=== PATIENT | male | born 1955 | race American Indian/Alaskan Native ===

== ENCOUNTER 2017-08-28 14:15 | Inpatient (IN) | payer MEDICARE ==
--- NOTE | 2017-08-28 14:46 | Emergency Department Report ---
Stated Complaint: LEFT SIDE PAIN/SWOLLEN FEET Time Seen by Provider: 08/28/17 14:41 - HPI History of Present Illness: PT c/o side pain. PT states he has a hx BPH. PT states he has had BPH and he had biopsy x 3 (in 2014.) PT states he was sent to oncologist. PT states he went to follow up appointment that was at 2pm but he was not seen until 6. PT states he was also told that needs "radical surgery" PT states he felt like this dx and plan was wrong so he did not follow up. PT states he is now having back pain - ROS Review of Systems: + back pain - dysuria - hematuria + weight loss - Exam Physical Exam: thin male steady gait gcs 15 MSE screening note: Focused history and physical exam performed. Due to findings the following was ordered: labs ED Disposition for MSE Condition: Stable
[2017-08-28 15:23] LABS: Alanine Aminotransferase 9 units/L (7-56); Albumin 3.3 g/dL (3.9-5); Albumin/Globulin Ratio 0.8 %; Alkaline Phosphatase 89 units/L (35-129); Anion Gap 15 mmol/L; BUN/Creatinine Ratio 9; Blood Urea Nitrogen 6 mg/dL (9-20); Calcium 8.8 mg/dL (8.4-10.2); Carbon Dioxide 32 mmol/L (22-30); Chloride 92.4 mmol/L (98-107); Glucose 448 mg/dL (75-100); Lipase 47 units/L (13-60); Potassium 3.7 mmol/L (3.6-5.0); Sodium 136 mmol/L (137-145); Total Protein 7.5 g/dL (6.3-8.2)
[2017-08-28 15:38] LABS: Bilirubin,Urine NEG (Negative); Blood,Urine SM (Negative); Ketones,Urine NEG (Negative); Leukocyte Esterase,Urine LG (Negative); Mucus,Urine FEW /HPF; Nitrite,Urine NEG (Negative); Protein,Urine <15 mg/dL mg/dL (Negative); Urobilinogen,Urine < 2.0 mg/dL (<2.0)
[2017-08-28 15:40] LABS: WBC,Urine > 182.0 /HPF (0.0-6.0)
[2017-08-28 15:45] LABS: Basophils % (Auto) 0.5 % (0.0-1.8); Eosinophils % (Auto) 3.2 % (0.0-4.3); Hematocrit 39.5 % (35.5-45.6); Hemoglobin 13.2 gm/dl (11.8-15.2); Mean Corpuscular HGB Conc 33 % (32-34); Mean Corpuscular Hemoglobin 26 pg (28-32); Mean Corpuscular Volume 79 fl (84-94); Platelet Count 259 K/mm3 (140-440); Red Blood Count 4.99 M/mm3 (3.65-5.03); Red Cell Distribution Width 13.1 % (13.2-15.2); White Blood Count 6.1 K/mm3 (4.5-11.0)
[2017-08-28] MEDS ORDERED: ROCEPHIN/NS 1 GM/50 ML 1 GM/50 ML BAG IV ONE (23:41)
[2017-08-28] MEDS ORDERED: NACL 0.9% 1000 ML 1,000 ML IV ONE (23:42)
[2017-08-28] MEDS ORDERED: TORADOL IV ONE (23:53)
--- NOTE | 2017-08-29 00:12 | Emergency Department Report ---
ED Abdominal Pain HPI - General Chief Complaint: Abdominal Pain Stated Complaint: LEFT SIDE PAIN/SWOLLEN FEET Time Seen by Provider: 08/28/17 14:41 Source: patient Mode of arrival: Ambulatory Limitations: No Limitations - History of Present Illness Initial Comments: 62-year-old male with a past medical history of BPH, hepatitis C, diabetes, hypertension, prolapsed rectum, and previous cholecystectomy presents to the hospital with complaints of ongoing left flank pain. He has been present for 2 weeks and 3 days. Pain is a constant aching 8/10 pain that becomes a 10/10 pain is sharp with movement. Patient denies dysuria, hematuria, nausea, vomiting, or diarrhea. Patient also states he has no difficulty initiating urination and does not have to strain. Patient has chronic rectal prolapse and hemorrhoids for "years". In 2014 Dr Salgado performed a third of prostate biopsy that shows signs of cancer and radical prostatectomy was recommended. Patient states he was going to get another opinion but has never followed up he also stopped seeing his primary care doctor Yaron Em.. Severity scale (0 -10): 7 - Related Data Allergies Allergy/AdvReac Type Severity Reaction Status Date / Time No Known Allergies Allergy Verified 08/29/17 01:06 ED Review of Systems ROS: Stated complaint: LEFT SIDE PAIN/SWOLLEN FEET Other details as noted in HPI Comment: All other systems reviewed and negative Other: Constitutional: No fevers chills Eyes: No eye pain visual changes ENT: No ear pain or throat pain Neck: Denies pain Respiratory: Denies cough wheezing shortness of breath Cardiovascular: Denies chest pain, palpitations, syncope GI: Left-sided abdominal pain : As per HPI Musculoskeletal: Left flank pain Skin: Denies rash, lesions, erythema Neurologic: Denies headache, numbness, weakness Psychiatric: Denies suicidal ideation, hallucinations ED Past Medical Hx - Past Medical History Previous Medical History?: Yes Hx Hypertension: Yes Hx Diabetes: Yes Hx of Cancer: Yes (prostate) Additional medical history: BPH, biopsy of prostate, prolapse rectum, hepatitis C - Surgical History Past Surgical History?: Yes Hx Cholecystectomy: Yes Additional Surgical History: Rectal reconstruction - Social History Smoking Status: Never Smoker Substance Use Type: Non Opiate Pain, Prescribed ED Physical Exam - General Limitations: No Limitations - Other Other exam information: General: No limitations, patient is alert in no acute distress Head exam: Atraumatic, normocephalic Eyes exam: Normal appearance, pupils equal reactive to light, extraocular movements intact ENT: Moist mucous membrane, normal oropharynx Neck exam: Normal inspection, full range of motion, no meningismus nontender Respiratory exam: Clear to auscultation bilateral, no wheezes, rales, crackles Cardiovascular: Normal rate and rhythm, normal heart sounds Abdomen: Soft, nondistended, left lateral abdominal tenderness, with normal bowel sounds, no rebound, or guarding : Circumcised, no penile lesions or discharge, no epididymal or testicular tenderness. Rectal: Rectal prolapse and hemorrhoids noted with pink tissue. No signs of thrombosis. No active signs of bleeding Extremity: Full range of motion normal inspection no deformity Back: Normal Inspection, full range of motion, left flank tenderness,, no edema Neurologic: Alert, oriented x3, cranial nerves intact, no motor or sensory deficit Psychiatric: normal affect, normal mood Skin: Warm, dry, intact ED Course Vital Signs 08/28/17 08/28/17 14:39 23:49 Temperature 98.8 F Pulse Rate 104 H 84 Respiratory 18 18 Rate Blood Pressure 155/98 Blood Pressure 173/91 [Right] O2 Sat by Pulse 100 Oximetry - Reevaluation(s) Reevaluation #1: 08/29/17 00:12 Toradol, normal saline, Rocephin initiated. CT pending ED Medical Decision Making - Lab Data Result diagrams: 08/28/17 14:48 08/28/17 14:48 Lab Results 08/28/17 08/28/17 08/28/17 Range/Units 14:48 14:48 Unknown WBC 6.1 (4.5-11.0) K/mm3 RBC 4.99 (3.65-5.03) M/mm3 Hgb 13.2 (11.8-15.2) gm/dl Hct 39.5 (35.5-45.6) % MCV 79 L (84-94) fl MCH 26 L (28-32) pg MCHC 33 (32-34) % RDW 13.1 L (13.2-15.2) % Plt Count 259 (140-440) K/mm3 Lymph % (Auto) 13.8 (13.4-35.0) % [place] % (Auto) 7.5 H (0.0-7.3) % Eos % (Auto) 3.2 (0.0-4.3) % Baso % (Auto) 0.5 (0.0-1.8) % Lymph # 0.8 L (1.2-5.4) K/mm3 [place] # 0.5 (0.0-0.8) K/mm3 Eos # 0.2 (0.0-0.4) K/mm3 Baso # 0.0 (0.0-0.1) K/mm3 Seg Neutrophils % 75.0 H (40.0-70.0) % Seg Neutrophils # 4.6 (1.8-7.7) K/mm3 Sodium 136 L (137-145) mmol/L Potassium 3.7 (3.6-5.0) mmol/L Chloride 92.4 L (98-107) mmol/L Carbon Dioxide 32 H (22-30) mmol/L Anion Gap 15 mmol/L BUN 6 L (9-20) mg/dL Creatinine 0.7 L (0.8-1.5) mg/dL Estimated GFR > 60 ml/min BUN/Creatinine Ratio 9 % Glucose 448 H (75-100) mg/dL POC Glucose (70-105) Calcium 8.8 (8.4-10.2) mg/dL Total Bilirubin 0.30 (0.1-1.2) mg/dL AST 10 (5-40) units/L ALT 9 (7-56) units/L Alkaline Phosphatase 89 (35-129) units/L Total Protein 7.5 (6.3-8.2) g/dL Albumin 3.3 L (3.9-5) g/dL Albumin/Globulin Ratio 0.8 % Lipase 47 (13-60) units/L Urine Color Yellow (Yellow) Urine Turbidity Clear (Clear) Urine pH 6.0 (5.0-7.0) Ur Specific [place] 1.032 H (1.003-1.030) Urine Protein <15 mg/dl (Negative) mg/dL Urine Glucose (UA) >=500 (Negative) mg/dL Urine Ketones Neg (Negative) mg/dL Urine Blood Sm (Negative) Urine Nitrite Neg (Negative) Urine Bilirubin Neg (Negative) Urine Urobilinogen < 2.0 (<2.0) mg/dL Ur Leukocyte Esterase Lg (Negative) Urine WBC (Auto) > 182.0 H (0.0-6.0) /HPF Urine RBC (Auto) 6.0 (0.0-6.0) /HPF U Epithel Cells (Auto) < 1.0 (0-13.0) /HPF Urine WBC Clumps 1+ /HPF Urine Mucus Few /HPF 08/29/17 Range/Units 00:01 WBC (4.5-11.0) K/mm3 RBC (3.65-5.03) M/mm3 Hgb (11.8-15.2) gm/dl Hct (35.5-45.6) % MCV (84-94) fl MCH (28-32) pg MCHC (32-34) % RDW (13.2-15.2) % Plt Count (140-440) K/mm3 Lymph % (Auto) (13.4-35.0) % [place] % (Auto) (0.0-7.3) % Eos % (Auto) (0.0-4.3) % Baso % (Auto) (0.0-1.8) % Lymph # (1.2-5.4) K/mm3 [place] # (0.0-0.8) K/mm3 Eos # (0.0-0.4) K/mm3 Baso # (0.0-0.1) K/mm3 Seg Neutrophils % (40.0-70.0) % Seg Neutrophils # (1.8-7.7) K/mm3 Sodium (137-145) mmol/L Potassium (3.6-5.0) mmol/L Chloride (98-107) mmol/L Carbon Dioxide (22-30) mmol/L Anion Gap mmol/L BUN (9-20) mg/dL Creatinine (0.8-1.5) mg/dL Estimated GFR ml/min BUN/Creatinine Ratio % Glucose (75-100) mg/dL POC Glucose 441 H (70-105) Calcium (8.4-10.2) mg/dL Total Bilirubin (0.1-1.2) mg/dL AST (5-40) units/L ALT (7-56) units/L Alkaline Phosphatase (35-129) units/L Total Protein (6.3-8.2) g/dL Albumin (3.9-5) g/dL Albumin/Globulin Ratio % Lipase (13-60) units/L Urine Color (Yellow) Urine Turbidity (Clear) Urine pH (5.0-7.0) Ur Specific [place] (1.003-1.030) Urine Protein (Negative) mg/dL Urine Glucose (UA) (Negative) mg/dL Urine Ketones (Negative) mg/dL Urine Blood (Negative) Urine Nitrite (Negative) Urine Bilirubin (Negative) Urine Urobilinogen (<2.0) mg/dL Ur Leukocyte Esterase (Negative) Urine WBC (Auto) (0.0-6.0) /HPF Urine RBC (Auto) (0.0-6.0) /HPF U Epithel Cells (Auto) (0-13.0) /HPF Urine WBC Clumps /HPF Urine Mucus /HPF - Radiology Data Radiology results: report reviewed CT abdomen and pelvis IV contrast: Cystic mass at the apex of left kidney measures 6.5 cm in diameter. Could be simple cysts, and necrotic neoplasm, or abscess. Focal irregularity of the medial border of the left kidney suggesting focal pyelonephritis Complex cystic mass in the psoas muscle measuring 2.3 x 4.8 x 9 cm suggestive psoas abscess versus necrotic tumor. There is left perinephric induration Large amount of stool in the colon. Enlarged left periaortic and retroperitoneal lymph nodes. Prostate gland is enlarged and heterogeneous. Infiltrates at the left lung base is small the pleural effusion - Medical Decision Making Patient initially given Rocephin in the ED based on initial UA. Given CT findings zosyn ordered as well. Patient will be admitted to the hospital for further treatment - Differential Diagnosis UTI, renal colic, prostate cancer, diverticulitis, muscle strain Critical Care Time: No Critical care attestation.: If time is entered above; I have spent that time in minutes in the direct care of this critically ill patient, excluding procedure time. ED Disposition Clinical Impression: Pyelonephritis, Psoas abscess, left, Renal cyst, left, Diabetes, HTN ( hypertension), Rectal mucosa prolapse, Pulmonary infiltrate Disposition: OP ADMIT IP TO THIS HOSP Is pt being admited?: Yes Condition: Stable Time of Disposition: 04:05 (Dr Forte/hospitalist)
[2017-08-29] MEDS ORDERED: NACL ONE (00:59)
--- NOTE | 2017-08-29 03:13 | Cat Scan Report ---
FINAL REPORT PROCEDURE: CT ABDOMEN PELVIS W CON TECHNIQUE: Computerized axial tomography of the abdomen and pelvis was performed after the IV injection of iodinated nonionic contrast. HISTORY: left flank pain, uti, ? hx of prostate cancer COMPARISON: No prior studies are available for comparison. FINDINGS: Visualized lower thorax: There are infiltrates at the left lung base. There is a small left pleural effusion. Liver: Normal size and attenuation. Spleen: Normal size and attenuation. Gallbladder and biliary system: Gallbladder is not identified and may have been removed. The bile ducts are normal in caliber.. Pancreas: Normal. Adrenals: Normal. Kidneys: The right kidney is normal in size and configuration. There is a 1 centimeter stone. There is a cystic mass at the apex of the left kidney measuring up to 6.5 centimeters in diameter. This could be a simple cyst but necrotic neoplasm or abscess not excluded. There is focal irregularity of the medial border of the left kidney suggesting focal pyelonephritis. There is a complex cystic mass in the left psoas muscle measuring 2.3 x 4.8 by 9 centimeters suggesting psoas abscess versus necrotic tumor. There is left perinephric induration.. GI tract: There is a large amount of stool in the colon. There is no bowel obstruction, colitis or enteritis. The appendix is not discretely identified.. Lymph nodes and mesentery: There is mesenteric induration. There are borderline prominent mesenteric lymph nodes. There are enlarged left periaortic retroperitoneal lymph nodes.. Vasculature: Normal. Bladder: Normal. Reproductive organs: Prostate gland is enlarged and heterogeneous.. Peritoneum: There is minimal ascites. There is no free air.. Musculoskeletal structures: No significant abnormality. Other: None. IMPRESSION: There is a cystic mass at the apex of the left kidney measuring up to 6.5 centimeters in diameter. This could be a simple cyst but necrotic neoplasm or abscess not excluded. There is focal irregularity of the medial border of the left kidney suggesting focal pyelonephritis. There is a complex cystic mass in the left psoas muscle measuring 2.3 x 4.8 x 9 centimeters suggesting psoas abscess versus necrotic tumor. There is left perinephric induration.. There is a large amount of stool in the colon. There is no bowel obstruction, colitis or enteritis. The appendix is not discretely identified.. There are enlarged left periaortic retroperitoneal lymph nodes.. Prostate gland is enlarged and heterogeneous.. There are infiltrates at the left lung base. There is a small left pleural effusion. There is minimal ascites. There is no free air..
[2017-08-29] MEDS ORDERED: ZOSYN/NS 4.5GM/100ML 4.5 GM/100 ML VIAL IV ONE (04:10)
[2017-08-29] MEDS ORDERED: ZOFRAN IV PRN (04:42)
[2017-08-29] MEDS ORDERED: TYLENOL PO PRN (04:42)
[2017-08-29] MEDS ORDERED: MILK OF MAGNESIA PO PRN (04:42)
[2017-08-29] MEDS ORDERED: DULCOLAX PR PRN (04:42)
--- NOTE | 2017-08-29 05:14 | History and Physical Report ---
History of Present Illness Date of examination: 08/29/17 History of present illness: 62-year-old man with a history of hypertension, diabetes, BPH, hepatitis C complaining of left flank pain that started 2 1/2 weeks ago. Patient is unable to describe the pain, intensity7/10, no radiation. Admits to chills, dysuria, weight loss of 10 pounds to one half weeks and swelling in his feet. He had 6 episodes of diarrhea yesterday which is now resolved Review Of Systems: Constitutional: no weight loss Ears, eyes, nose, mouth and throat: no nasal congestion, no nasal discharge, no sinus pressure, blurry vision, diplopia Neck: No neck pain or rigidity. Cardiovascular: chest pain, orthopnea, palpitations Respiratory: No shortness of breath, cough Gastrointestinal: abdominal pain, hematochezia Genitourinary : no dysuria, frequency , hematuria Musculoskeletal: no muscle ache Integumentary: no rash, no pruritis Neurological: no parathesias, focal weakness Endocrine: no cold or heat intolerance, no polyuria or polydipsia Hematologic/Lymphatic: no easy bruising, no easy bleeding, no gland swelling Allergic/Immunologic: no urticaria, no angioedema. PAST MEDICAL HISTORY:hypertension, CHF, hyperlipidemia, coronary artery disease PAST SURGICAL HISTORY: Rectal prolapse, cholecystectomy FAMILY HISTORY: Diabetes SOCIAL HISTORY: Denies alcohol, drug, tobacco Medications and Allergies Allergies Allergy/AdvReac Type Severity Reaction Status Date / Time No Known Allergies Allergy Verified 08/29/17 01:06 Home Medications Medication Instructions Recorded Confirmed Last Taken Type No Known Home Medications [No 08/29/17 08/29/17 Unknown History Reported Home Medications] Active Meds: Active Medications Acetaminophen (Tylenol) 650 mg PO Q4H PRN PRN Reason: Pain MILD(1-3)/Fever >100.5/OLSEN Bisacodyl (Dulcolax) 10 mg [place] QDAY PRN PRN Reason: Constipation unrelieved by MOM Enoxaparin Sodium (Lovenox) 30 mg SUB-Q QDAY ASHLEIGH Piperacillin Sod/Tazobactam Sod (Zosyn/Ns 4.5gm/100ml) 4.5 gm in 100 mls @ 200 mls/hr IV Q8HR ASHLEIGH PRN Reason: Protocol Sodium Chloride (Nacl 0.45% 1000 Ml) 1,000 mls @ 75 mls/hr IV DIRECT ASHLEIGH Magnesium Hydroxide (Milk Of Magnesia) 30 ml PO Q4H PRN PRN Reason: Constipation Morphine Sulfate (Morphine) 2 mg IV Q4H PRN PRN Reason: Pain, Moderate (4-6) Ondansetron HCl (Zofran) 4 mg IV Q8H PRN PRN Reason: N/V unrelieved by Reglan Exam - Physical Exam Narrative exam: Gen. appearance: Patient lying in bed in no acute distress HEENT: Normocephalic/atraumatic, pupils equal round reactive to light, extra alkaline movement intact, no scleral icterus, no JVD or thyromegaly or nodule, neck is supple, mucous membrane moist, no erythema or exudate Heart: S1-S2, regular rate and rhythm Lungs: Clear to auscultation bilateral breathing comfortable Abdomen: Positive bowel sounds, nontender, nondistended, no organomegaly Extremities: No edema, cyanosis, clubbing Neuro:: Oriented 3 , cranial nerves II-12 intact, speech, motor intact Skin: No rash, nodules, warm dry - Constitutional Vitals: Temp Pulse Resp BP Pulse Ox 98.8 F 84 18 173/91 100 08/28/17 14:39 08/28/17 23:49 08/28/17 23:49 08/28/17 23:49 08/28/17 14:39 Results - Labs CBC & Chem 7: 08/30/17 04:11 08/30/17 04:11 Labs: Abnormal lab results 08/28/17 08/28/17 08/28/17 Range/Units 14:48 14:48 Unknown MCV 79 L (84-94) fl MCH 26 L (28-32) pg RDW 13.1 L (13.2-15.2) % [place] % (Auto) 7.5 H (0.0-7.3) % Lymph # 0.8 L (1.2-5.4) K/mm3 Seg Neutrophils % 75.0 H (40.0-70.0) % Sodium 136 L (137-145) mmol/L Chloride 92.4 L (98-107) mmol/L Carbon Dioxide 32 H (22-30) mmol/L BUN 6 L (9-20) mg/dL Creatinine 0.7 L (0.8-1.5) mg/dL Glucose 448 H (75-100) mg/dL POC Glucose (70-105) Albumin 3.3 L (3.9-5) g/dL Ur Specific [place] 1.032 H (1.003-1.030) Urine WBC (Auto) > 182.0 H (0.0-6.0) /HPF 08/29/17 Range/Units 00:01 MCV (84-94) fl MCH (28-32) pg RDW (13.2-15.2) % [place] % (Auto) (0.0-7.3) % Lymph # (1.2-5.4) K/mm3 Seg Neutrophils % (40.0-70.0) % Sodium (137-145) mmol/L Chloride (98-107) mmol/L Carbon Dioxide (22-30) mmol/L BUN (9-20) mg/dL Creatinine (0.8-1.5) mg/dL Glucose (75-100) mg/dL POC Glucose 441 H (70-105) Albumin (3.9-5) g/dL Ur Specific [place] (1.003-1.030) Urine WBC (Auto) (0.0-6.0) /HPF - Imaging and Cardiology CT scan - abdomen: report reviewed CT scan - pelvis: report reviewed Assessment and Plan Assessment possible renal mass Acute pyelonephritis Psoas abscess versus necrotic mass Pneumonia, community-acquired Hypertension Diabetes type 2 BPH Hepatitis c Plan Admit medicine Start IV Zosyn, follow cultures Consults surgery, obtain ultrasound of the kidneys Check fingersticks patient is on sliding scale Continue present medication, due to
--- NOTE | 2017-08-29 08:26 | Ultrasound Report ---
ULTRASOUND RENAL BILATERAL HISTORY: Renal mass. TECHNIQUE: transabdominal ultrasound with color Doppler interrogation. FINDINGS: Compared to the CT abdomen and pelvis with contrast performed earlier the same day. The left kidney measures 13.9 x 5.7 x 6.1 cm. There is a hypoechoic, avascular, debris laden fluid collection in the superior left kidney measuring up to 6.6 x 6.7 cm. Given the findings on CT and ultrasound, this has the appearance of a renal abscess. Renal mass is thought less likely. There is also a similar appearing fluid collection in the left psoas muscle which probably represents a psoas abscess. The right kidney measures 10.6 x 5.8 x 7.0 cm. There are 2 cysts in the mid right kidney measuring 1.3 cm and 1.2 cm. Both kidneys are slightly echogenic consistent with nonspecific renal parenchymal disease. No shadowing calculus or hydronephrosis. The bladder is within normal limits. There is mild to moderate prostatic enlargement. IMPRESSION: Probable left renal abscess and left psoas muscle abscess. Echogenic kidneys consistent with nonspecific renal parenchymal disease. Enlarged prostate gland.
[2017-08-29] MEDS: NACL 0.45% 1000 ML 1,000 ML IV SCH (09:45)
[2017-08-29] MEDS: LOVENOX SUB-Q SCH (09:46)
[2017-08-29] MEDS ORDERED: LOVENOX SUB-Q SCH (10:00)
[2017-08-29] MEDS: ZOSYN/NS 4.5GM/100ML 4.5 GM/100 ML VIAL IV SCH ×2 (11:47→21:55)
--- NOTE | 2017-08-29 13:55 | Event Note ---
Date: 08/29/17 Patient seen and examined, in no acute distress except for left flank pain. He reports diagnosis of Prostrate CA few years ago but opted for alternative naturapathic therapy. I have encouraged that he sees a primary care practitioners, as he states he fired his previous doctor. Also has not follow with urology. He also notes mild rectal prolapse which has been chronic with no bleeding. [facility]
[2017-08-29] MEDS ORDERED: ZOSYN/NS 4.5GM/100ML 4.5 GM/100 ML VIAL IV SCH (14:00)
[2017-08-30] MEDS: NACL 0.45% 1000 ML 1,000 ML IV SCH ×2 (01:33→12:38)
[2017-08-30 04:39] LABS: Basophils % (Auto) 1.3 % (0.0-1.8); Eosinophils % (Auto) 7.1 % (0.0-4.3); Hematocrit 38.8 % (35.5-45.6); Hemoglobin 12.6 gm/dl (11.8-15.2); Mean Corpuscular HGB Conc 32 % (32-34); Mean Corpuscular Volume 79 fl (84-94); Platelet Count 258 K/mm3 (140-440); Red Blood Count 4.89 M/mm3 (3.65-5.03); Red Cell Distribution Width 13.1 % (13.2-15.2); White Blood Count 5.2 K/mm3 (4.5-11.0)
[2017-08-30 04:45] LABS: Mean Corpuscular Hemoglobin 26 pg (28-32)
[2017-08-30 04:55] LABS: Anion Gap 14 mmol/L; BUN/Creatinine Ratio 13; Blood Urea Nitrogen 9 mg/dL (9-20); Calcium 8.2 mg/dL (8.4-10.2); Carbon Dioxide 30 mmol/L (22-30); Chloride 100.6 mmol/L (98-107); Glucose 308 mg/dL (75-100); Potassium 3.4 mmol/L (3.6-5.0); Sodium 141 mmol/L (137-145)
[2017-08-30] MEDS: ZOSYN/NS 4.5GM/100ML 4.5 GM/100 ML VIAL IV SCH ×3 (06:30→21:00)
[2017-08-30] MEDS ORDERED: D50W (25GM) Syringe IV PRN (07:32)
[2017-08-30] MEDS ORDERED: K-DUR PO NR (08:00)
[2017-08-30] MEDS: MORPHINE IV PRN ×2 (09:20→15:35)
[2017-08-30] MEDS: LOVENOX SUB-Q SCH (09:42)
--- NOTE | 2017-08-30 11:00 | Event Note ---
Date: 08/30/17 Was asked to evaluate a patient for possible LUQ/renal collection drain. This patient presented with n/v and LUQ pain. No fevers/chills/leukocytosis. Has history of prostate cancer. Cross sectional imaging demonstrates what is most likely a renal abscess, less likely a necrotic tumor. I will aspirate the collection, and if contents appear purulent, I will place a drainage catheter. If not, then I will stop at aspiration, as drainage is not indicated for a necrotic tumor.
[2017-08-30] MEDS: NOVOLOG SUB-Q SCH ×3 (11:05→17:16)
--- NOTE | 2017-08-30 12:13 | Consultation ---
History of Present Illness - Reason for Consult Consult date: 08/30/17 - History of Present Illness 62-year-old male with a past medical history of BPH, hepatitis C, diabetes, hypertension, prolapsed rectum, and previous cholecystectomy presents to the hospital with complaints of ongoing left flank pain. He has been present for 2 weeks and 3 days. Pain is a constant aching 8/10 pain that becomes a 10/10 pain is sharp with movement. Patient denies dysuria, hematuria, nausea, vomiting, or diarrhea. Patient also states he has no difficulty initiating urination and does not have to strain. Patient has chronic rectal prolapse and hemorrhoids for "years". In 2014 Dr Salgado performed a third of prostate biopsy that shows signs of cancer and radical prostatectomy was recommended. Patient states he was going to get another opinion but has never followed up he also stopped seeing his primary care doctor Yaron Em.. CTAP--left renal mass---6cm, ? abscess abd soft A/P left renal mass---6cm, ? abscess need CTAP bx vs drainage - - I discussed with IR--Dr. Turner Medications and Allergies Allergies Allergy/AdvReac Type Severity Reaction Status Date / Time No Known Allergies Allergy Verified 08/29/17 01:06 Home Medications Medication Instructions Recorded Confirmed Last Taken Type No Known Home Medications [No 08/29/17 08/29/17 Unknown History Reported Home Medications] Active Meds: Active Medications Acetaminophen (Tylenol) 650 mg PO Q4H PRN PRN Reason: Pain MILD(1-3)/Fever >100.5/OLSEN Bisacodyl (Dulcolax) 10 mg [place] QDAY PRN PRN Reason: Constipation unrelieved by MOM Dextrose (D50w (25gm) Syringe) 50 ml IV PRN PRN PRN Reason: Hypoglycemia Enoxaparin Sodium (Lovenox) 40 mg SUB-Q QDAY@1000 ASHLEIGH Last Admin: 08/30/17 09:42 Dose: 40 mg Sodium Chloride (Nacl 0.45% 1000 Ml) 1,000 mls @ 75 mls/hr IV DIRECT ASHLEIGH Last Admin: 08/30/17 01:33 Dose: 75 mls/hr Piperacillin Sod/Tazobactam Sod (Zosyn/Ns 4.5gm/100ml) 4.5 gm in 100 mls @ 200 mls/hr IV Q8HR ASHLEIGH PRN Reason: Protocol Last Admin: 08/30/17 06:30 Dose: 200 mls/hr Insulin Aspart (Novolog) 0 units SUB-Q Q6HR ASHLEIGH PRN Reason: Protocol Last Admin: 08/30/17 11:05 Dose: Not Given Magnesium Hydroxide (Milk Of Magnesia) 30 ml PO Q4H PRN PRN Reason: Constipation Morphine Sulfate (Morphine) 2 mg IV Q4H PRN PRN Reason: Pain, Moderate (4-6) Last Admin: 08/30/17 09:20 Dose: 2 mg Ondansetron HCl (Zofran) 4 mg IV Q8H PRN PRN Reason: N/V unrelieved by Reglan Exam - Constitutional Vitals: Temp Pulse Resp BP Pulse Ox 98.4 F 57 L 16 142/80 97 08/30/17 08:14 08/30/17 08:14 08/30/17 08:14 08/30/17 08:14 08/30/17 10:00 Results - Labs CBC & Chem 7: 08/30/17 04:11 08/30/17 04:11 Labs: Abnormal lab results 08/29/17 08/29/17 08/29/17 Range/Units 15:57 16:52 21:02 MCV (84-94) fl MCH (28-32) pg RDW (13.2-15.2) % [place] % (Auto) (0.0-7.3) % Eos % (Auto) (0.0-4.3) % Lymph # (1.2-5.4) K/mm3 Potassium (3.6-5.0) mmol/L Creatinine (0.8-1.5) mg/dL Glucose (75-100) mg/dL POC Glucose 177 H 354 H (70-105) Hemoglobin A1c 14.0 H (4-6) % Calcium (8.4-10.2) mg/dL 08/30/17 08/30/17 08/30/17 Range/Units 04:11 04:11 11:35 MCV 79 L (84-94) fl MCH 26 L (28-32) pg RDW 13.1 L (13.2-15.2) % [place] % (Auto) 8.5 H (0.0-7.3) % Eos % (Auto) 7.1 H (0.0-4.3) % Lymph # 1.1 L (1.2-5.4) K/mm3 Potassium 3.4 L (3.6-5.0) mmol/L Creatinine 0.7 L (0.8-1.5) mg/dL Glucose 308 H (75-100) mg/dL POC Glucose 262 H (70-105) Hemoglobin A1c (4-6) % Calcium 8.2 L (8.4-10.2) mg/dL
[2017-08-30] MEDS ORDERED: XYLOCAINE 1%/ EPI 1:100,000 INFILTRATI ONE (13:55)
[2017-08-30] MEDS ORDERED: NACL 0.9% 500 ML IR ONE (13:55)
[2017-08-30] MEDS ORDERED: ANCEF/STERILE WATER 2 GM/20 ML 2 GM/20 ML SYRINGE IV ONE (13:56)
--- NOTE | 2017-08-30 14:50 | Progress Note ---
Assessment and Plan Assessment and plan: patient is a 62-year-old male with a past medical history of BPH, hepatitis C, diabetes, hypertension, prolapsed rectum, and previous cholecystectomy presents to the hospital with complaints of ongoing left flank pain. The patient he describes as 10/10 in intensity stuffed him on his tracts. This exacerbated by movement and by touch. He denies any radiation, he reports alleviated by rest. He reports that he was diagnosed with biopsy in 2015 with 3 different biopsies and was referred to have both radical surgery" to which he declined. Says that he has not followed his primary care physician he continues to follow "super food diet". He also he did not fill his primary care physician Woo and off as he was found appointment that was planned for 2:00 and was last seen on till 6 and even I doubt was only seen by a nurse who told him his Dr. one seemed to go reconsider having surgery. Possible renal mass, Acute pyelonephritis Psoas abscess versus necrotic mass Pneumonia, community-acquired Hypertension Diabetes type 2-Uncontrolled A1C 14 BPH Hepatitis c Plan * Continue IV Abx with zosyn, supportive care, Agree with IR intervention. Discussed and Consulted Urology earlier today * Discussed extensively with the patient about Diabetes, He demostrates understanding, but appears to have limited resources, will ensure reasonably affordable meds on discharge. * Encouraged outpatient PCP eval, including age appropriate screening on discharge * Images studies reveal a 6 cm renal mass which could also be possible abscess. Again as noted above for drainage all biopsy today. * DVT and GI prophylaxis * Plan of care discussed with the patient in detail History Interval history: Patient seen and examined today in no acute distress at the discussed the findings and laboratory with the patient included an elevated hemoglobin A1c. The patient believes something is wrong with the number since he believes that he has adequately managed his diabetes by sticking with naturopathic treatments including proper eating "super foods" Hospitalist Physical - Physical exam Narrative exam: VITAL SIGNS: Reviewed. GENERAL: The patient appeared well nourished and normally developed. Vital signs as documented. HEAD: No signs of head trauma. EYES: Pupils are equal. Extraocular motions intact. EARS: Hearing grossly intact. MOUTH: Oropharynx is normal. NECK: No adenopathy, no JVD. CHEST: Chest with clear breath sounds bilaterally. No wheezes, rales, or rhonchi. CARDIAC: Regular rate and rhythm. S1 and S2, without murmurs, gallops, or rubs. VASCULAR: No Edema. Peripheral pulses normal and equal in all extremities. ABDOMEN: Soft, without detectable tenderness. No sign of distention. No rebound or guarding, and no masses palpated. Bowel Sounds normal. MUSCULOSKELETAL: Good range of motion of all major joints. Extremities without clubbing, cyanosis or edema. NEUROLOGIC EXAM: Alert and oriented x 3. No focal sensory or strength deficits. Speech normal. Follows commands. PSYCHIATRIC: Mood normal. SKIN: No rash or lesions. - Constitutional Vitals: Temp Pulse Resp BP Pulse Ox 98.4 F 57 L 18 142/80 97 08/30/17 08:14 08/30/17 08:14 08/30/17 12:41 08/30/17 08:14 08/30/17 10:00 Results - Labs CBC & Chem 7: 08/30/17 04:11 08/30/17 04:11 Labs: Laboratory Last Values WBC 5.2 K/mm3 (4.5-11.0) 08/30/17 04:11 RBC 4.89 M/mm3 (3.65-5.03) 08/30/17 04:11 Hgb 12.6 gm/dl (11.8-15.2) 08/30/17 04:11 Hct 38.8 % (35.5-45.6) 08/30/17 04:11 MCV 79 fl (84-94) L 08/30/17 04:11 MCH 26 pg (28-32) L 08/30/17 04:11 MCHC 32 % (32-34) 08/30/17 04:11 RDW 13.1 % (13.2-15.2) L 08/30/17 04:11 Plt Count 258 K/mm3 (140-440) 08/30/17 04:11 Lymph % (Auto) 20.8 % (13.4-35.0) 08/30/17 04:11 [place] % (Auto) 8.5 % (0.0-7.3) H 08/30/17 04:11 Eos % (Auto) 7.1 % (0.0-4.3) H 08/30/17 04:11 Baso % (Auto) 1.3 % (0.0-1.8) 08/30/17 04:11 Lymph # 1.1 K/mm3 (1.2-5.4) L 08/30/17 04:11 [place] # 0.4 K/mm3 (0.0-0.8) 08/30/17 04:11 Eos # 0.4 K/mm3 (0.0-0.4) 08/30/17 04:11 Baso # 0.1 K/mm3 (0.0-0.1) 08/30/17 04:11 Seg Neutrophils % 62.3 % (40.0-70.0) 08/30/17 04:11 Seg Neutrophils # 3.2 K/mm3 (1.8-7.7) 08/30/17 04:11 Sodium 141 mmol/L (137-145) 08/30/17 04:11 Potassium 3.4 mmol/L (3.6-5.0) L 08/30/17 04:11 Chloride 100.6 mmol/L (98-107) 08/30/17 04:11 Carbon Dioxide 30 mmol/L (22-30) 08/30/17 04:11 Anion Gap 14 mmol/L 08/30/17 04:11 BUN 9 mg/dL (9-20) 08/30/17 04:11 Creatinine 0.7 mg/dL (0.8-1.5) L 08/30/17 04:11 Estimated GFR > 60 ml/min 08/30/17 04:11 BUN/Creatinine Ratio 13 % 08/30/17 04:11 Glucose 308 mg/dL (75-100) H 08/30/17 04:11 POC Glucose 262 (70-105) H 08/30/17 11:35 Hemoglobin A1c 14.0 % (4-6) H 08/29/17 15:57 Calcium 8.2 mg/dL (8.4-10.2) L 08/30/17 04:11 Total Bilirubin 0.30 mg/dL (0.1-1.2) 08/28/17 14:48 AST 10 units/L (5-40) 08/28/17 14:48 ALT 9 units/L (7-56) 08/28/17 14:48 Alkaline Phosphatase 89 units/L (35-129) 08/28/17 14:48 Total Protein 7.5 g/dL (6.3-8.2) 08/28/17 14:48 Albumin 3.3 g/dL (3.9-5) L 08/28/17 14:48 Albumin/Globulin Ratio 0.8 % 08/28/17 14:48 Lipase 47 units/L (13-60) 08/28/17 14:48 Urine Color Yellow (Yellow) 08/28/17 Unknown Urine Turbidity Clear (Clear) 08/28/17 Unknown Urine pH 6.0 (5.0-7.0) 08/28/17 Unknown Ur Specific [place] 1.032 (1.003-1.030) H 08/28/17 Unknown Urine Protein <15 mg/dl mg/dL (Negative) 08/28/17 Unknown Urine Glucose (UA) >=500 mg/dL (Negative) 08/28/17 Unknown Urine Ketones Neg mg/dL (Negative) 08/28/17 Unknown Urine Blood Sm (Negative) 08/28/17 Unknown Urine Nitrite Neg (Negative) 08/28/17 Unknown Urine Bilirubin Neg (Negative) 08/28/17 Unknown Urine Urobilinogen < 2.0 mg/dL (<2.0) 08/28/17 Unknown Ur Leukocyte Esterase Lg (Negative) 08/28/17 Unknown Urine WBC (Auto) > 182.0 /HPF (0.0-6.0) H 08/28/17 Unknown Urine RBC (Auto) 6.0 /HPF (0.0-6.0) 08/28/17 Unknown U Epithel Cells (Auto) < 1.0 /HPF (0-13.0) 08/28/17 Unknown Urine WBC Clumps 1+ /HPF 08/28/17 Unknown Urine Mucus Few /HPF 08/28/17 Unknown - Imaging and Cardiology CT scan - abdomen: image reviewed (left kidney abscess)
--- NOTE | 2017-08-30 15:45 | Consultation ---
History of Present Illness - Reason for Consult Consult date: 08/30/17 - History of Present Illness This is a 62-year-old male who presented to the emergency room with left upper quadrant pain, nausea, and vomiting for approximately 2 days. At the time of presentation he denied fevers or chills or any significant changes in bowel habits. Cross-sectional imaging was obtained. CT demonstrated a low to moderate density renal mass/collection, with inflammatory changes medial to the left kidney, along with a small left psoas abscess. Sonography demonstrated a debris filled collection within the superior aspect of the left kidney. Surgery, urology, and interventional radiology consult was placed Medications and Allergies Allergies Allergy/AdvReac Type Severity Reaction Status Date / Time No Known Allergies Allergy Verified 08/29/17 01:06 Home Medications Medication Instructions Recorded Confirmed Last Taken Type No Known Home Medications [No 08/29/17 08/29/17 Unknown History Reported Home Medications] Active Meds: Active Medications Acetaminophen (Tylenol) 650 mg PO Q4H PRN PRN Reason: Pain MILD(1-3)/Fever >100.5/OLSEN Bisacodyl (Dulcolax) 10 mg IN QDAY PRN PRN Reason: Constipation unrelieved by MOM Dextrose (D50w (25gm) Syringe) 50 ml IV PRN PRN PRN Reason: Hypoglycemia Enoxaparin Sodium (Lovenox) 40 mg SUB-Q QDAY@1000 ASHLEIGH Last Admin: 08/30/17 09:42 Dose: 40 mg Sodium Chloride (Nacl 0.45% 1000 Ml) 1,000 mls @ 75 mls/hr IV DIRECT ASHLEIGH Last Admin: 08/30/17 12:38 Dose: 75 mls/hr Piperacillin Sod/Tazobactam Sod (Zosyn/Ns 4.5gm/100ml) 4.5 gm in 100 mls @ 200 mls/hr IV Q8HR ASHLEIGH PRN Reason: Protocol Last Admin: 08/30/17 15:35 Dose: 200 mls/hr Insulin Aspart (Novolog) 0 units SUB-Q Q6HR ASHLEIGH PRN Reason: Protocol Last Admin: 08/30/17 12:27 Dose: 4 units Magnesium Hydroxide (Milk Of Magnesia) 30 ml PO Q4H PRN PRN Reason: Constipation Morphine Sulfate (Morphine) 2 mg IV Q4H PRN PRN Reason: Pain, Moderate (4-6) Last Admin: 08/30/17 15:35 Dose: 2 mg Ondansetron HCl (Zofran) 4 mg IV Q8H PRN PRN Reason: N/V unrelieved by Reglan Exam - Constitutional Vitals: Temp Pulse Resp BP Pulse Ox 98.4 F 57 L 18 142/80 97 08/30/17 08:14 08/30/17 08:14 08/30/17 12:41 08/30/17 08:14 08/30/17 10:00 General appearance: Present: no acute distress - EENT Eyes: Present: PERRL ENT: hearing intact - Respiratory Respiratory effort: normal - Abdominal General gastrointestinal: Present: soft, tender, non-distended Localized gastrointestinal: tender: LUQ - Integumentary Integumentary: Present: clear - Psychiatric Psychiatric: appropriate mood/affect - Neurologic Neurologic: CNII-XII intact Results - Labs CBC & Chem 7: 08/30/17 04:11 08/30/17 04:11 Labs: Abnormal lab results 08/29/17 08/29/17 08/29/17 Range/Units 15:57 16:52 21:02 MCV (84-94) fl MCH (28-32) pg RDW (13.2-15.2) % Day % (Auto) (0.0-7.3) % Eos % (Auto) (0.0-4.3) % Lymph # (1.2-5.4) K/mm3 Potassium (3.6-5.0) mmol/L Creatinine (0.8-1.5) mg/dL Glucose (75-100) mg/dL POC Glucose 177 H 354 H (70-105) Hemoglobin A1c 14.0 H (4-6) % Calcium (8.4-10.2) mg/dL 08/30/17 08/30/17 08/30/17 Range/Units 04:11 04:11 11:35 MCV 79 L (84-94) fl MCH 26 L (28-32) pg RDW 13.1 L (13.2-15.2) % Day % (Auto) 8.5 H (0.0-7.3) % Eos % (Auto) 7.1 H (0.0-4.3) % Lymph # 1.1 L (1.2-5.4) K/mm3 Potassium 3.4 L (3.6-5.0) mmol/L Creatinine 0.7 L (0.8-1.5) mg/dL Glucose 308 H (75-100) mg/dL POC Glucose 262 H (70-105) Hemoglobin A1c (4-6) % Calcium 8.2 L (8.4-10.2) mg/dL - Imaging and Cardiology CT scan - abdomen: report reviewed, image reviewed US - abdomen: report reviewed, image reviewed Assessment and Plan Although the patient presented with no fevers or chills and he has a normal white count, the lesion is most likely an abscess, especially given the rim- enhancing collection in the adjacent psoas muscle. I will aspirate initially with a needle. If the aspirated contents or purulent , I will place a drainage catheter. If there is solid tissue, I will acquire a core biopsy.
--- NOTE | 2017-08-30 15:50 | Operative Report ---
Operative Report Operative Report: Procedure: 1. Successful fluoroscopy and ultrasound guided placement of a left renal abscess drainage catheter 2. Sonographic evaluation of the left kidney Date of Procedure: 08/30/2017 History/Indication: 62-year-old male with a left renal abscess discovered on cross-sectional imaging acquired because of an abdominal pain evaluation Physician: Lorraine Turner MD Technique/Procedural Details: The patient was placed in the prone position and prepped and draped in the usual sterile fashion. A timeout was performed. Sonographic evaluation of the left kidney was performed, and permanent images were acquired. Local anesthetic was administered. Under continuous ultrasound guidance, a 21-gauge needle was advanced into the left renal collection. A small amount of contrast was injected to confirm placement. An .018 wire was placed through the needle, and the needle was exchanged out for a 4 Vietnamese dilator. Through the 4 Vietnamese dilator, and Amplatz wire was advanced into the collection. The dilator was exchanged for a 6 Vietnamese tissue dilator. After tissue dilation, an 8 Vietnamese all purpose drainage catheter was advanced into the collection. Contrast was injected again to confirm placement. The locking loop was formed. The newly placed catheter was connected to gravity drainage. The new catheter was secured to the skin with 2-0 Ethilon suture. A postdrainage image was acquired. Sterile dressings were placed, and the patient was transported out of the procedure room without immediate complication. Discussion: Both fluoroscopy and sonography demonstrate a large collection filled with debris at the superior aspect/upper pole of the left kidney. Approximately 200 mL of frankly purulent fluid was aspirated. Approximately 20 mL were sent for Gram stain and culture. The newly placed drain fills and decompresses the abscess cavity adequately. Specimen: Abscess fluid EBL: <5 cc
--- NOTE | 2017-08-30 21:05 | Consultation ---
HISTORY OF PRESENT ILLNESS: The patient was seen upon admission. He is a 62-year-old black male who has been having severe pain to the left flank for about 2-3 weeks' duration. He had some pain to the area about 6 weeks ago. He had no nausea, no vomiting. He is a known case of diabetes mellitus, hypertension, hepatitis C, and benign prostatic hyperplasia. He was told at one point that his rectum was opened up to the outside, but every time he tried to push it in with ____. He gives a history of cholecystectomy in the past. According to him, the pain was constant and it is aching, it is in the range for about 10/10, but today when I saw him, may be about 6/10. At one point also, he was told that he may have prostatic problem. He had no bleeding in his urine. He had no diarrhea. The rectal prolapse is ? hemorrhoids for some years now. In 12/2014, Dr. Salgado did on him a prostatic biopsy. So, he underwent radical prostatectomy at that point. At this point, he presented for further evaluation. The patient had no smoking history. He is a known case of diabetes mellitus. He is on medication for that, mainly insulin that he takes every 6 hours. PHYSICAL EXAMINATION: GENERAL: At this point showed a thin, slim black male who is in no distress. He had eye glasses. HEAD AND NECK: Negative. Neck is supple. CHEST: Essentially clear to me. HEART: Sound normal. ABDOMEN: Protuberant, soft. Benign minimal to moderate tenderness over the left flank area. GENITALIA: Showed normal male genitalia. EXTREMITIES: Showed no significant edema. IMPRESSION: Left-sided flank pain with ? psoas abscess is likely I believe this man on the CAT, upon reviewing it, he has a large kidney mass on the left side, questionable abscess in that area. 1. Left flank mass. 2. Left flank pain. 3. Diabetes mellitus. 4. Carcinoma of the prostate by history. I had a very lengthy talk with the patient as to the need for involvement in this case. Apparently, Dr. Peoples seen him and going to have Interventional Radiology to see him, may be to drain that. Although to me, it looks like a cancerous process involving his left kidney. I will talk with Dr. Peoples, we will go from there. His CBC is essentially negative. H and H are okay. Potassium is 3.4, creatinine is 0.7. His sugars ranging between 177 to 262. We will pursue his situation with the urologist and Interventional Radiologist. JOB# [id number] OSNIA/NTS
[2017-08-31] MEDS: NOVOLOG SUB-Q SCH ×4 (01:31→18:32)
[2017-08-31] MEDS: NACL 0.45% 1000 ML 1,000 ML IV SCH ×2 (01:32→15:34)
[2017-08-31] MEDS: ZOSYN/NS 4.5GM/100ML 4.5 GM/100 ML VIAL IV SCH ×3 (05:14→22:31)
--- NOTE | 2017-08-31 07:58 | Progress Note ---
Assessment and Plan Assessment and plan: patient is a 62-year-old male with a past medical history of BPH, hepatitis C, diabetes, hypertension, prolapsed rectum, and previous cholecystectomy presents to the hospital with complaints of ongoing left flank pain. The patient he describes as 10/10 in intensity stuffed him on his tracts. This exacerbated by movement and by touch. He denies any radiation, he reports alleviated by rest. He reports that he was diagnosed with biopsy in 2015 with 3 different biopsies and was referred to have both radical surgery" to which he declined. Says that he has not followed his primary care physician he continues to follow "super food diet". He also he did not fill his primary care physician Woo and off as he was found appointment that was planned for 2:00 and was last seen on till 6 and even I doubt was only seen by a nurse who told him his Dr. one seemed to go reconsider having surgery. Possible renal mass, Sepsis secondary to GNR Acute pyelonephritis Psoas abscess versus necrotic mass Pneumonia, community-acquired Hypertension Hypokalemia Diabetes type 2-Uncontrolled A1C 14 BPH Hepatitis C Plan * Continue IV Abx with zosyn, supportive care, Urology and IR input noted * S/P Fluroscopy and ultrasound guided placement of left renal abscess drainage catheter. Follow culture- growing GNR * Replace K * Check lactate, one episode of fever, likely secondary to Surgical reaction. * Discussed extensively with the patient about Diabetes, He demonstrates understanding, but appears to have limited resources, will ensure reasonably affordable meds on discharge. * Encouraged outpatient PCP eval, including age appropriate screening on discharge * Images studies revealed a 6 cm renal mass which could also be possible abscess. Drainage done yesterday * DVT and GI prophylaxis * Plan of care discussed with the patient in detail History Interval history: Patient seen and examined today in no acute distress, Reports improvement in flank pain, except for sore sensation at the site of tube infection. Hospitalist Physical - Physical exam Narrative exam: VITAL SIGNS: Reviewed. GENERAL: The patient appeared well nourished and normally developed. Vital signs as documented. HEAD: No signs of head trauma. EYES: Pupils are equal. Extraocular motions intact. EARS: Hearing grossly intact. MOUTH: Oropharynx is normal. NECK: No adenopathy, no JVD. CHEST: Chest with clear breath sounds bilaterally. No wheezes, rales, or rhonchi. CARDIAC: Regular rate and rhythm. S1 and S2, without murmurs, gallops, or rubs. VASCULAR: No Edema. Peripheral pulses normal and equal in all extremities. ABDOMEN: Soft, without detectable tenderness. TAMIA drain in place. No sign of distention. No rebound or guarding, and no masses palpated. Bowel Sounds normal. MUSCULOSKELETAL: Good range of motion of all major joints. Extremities without clubbing, cyanosis or edema. NEUROLOGIC EXAM: Alert and oriented x 3. No focal sensory or strength deficits. Speech normal. Follows commands. PSYCHIATRIC: Mood normal. SKIN: No rash or lesions. - Constitutional Vitals: Temp Pulse Resp BP Pulse Ox 98.7 F 74 18 117/77 95 08/30/17 23:57 08/30/17 23:57 08/31/17 05:16 08/30/17 23:57 08/30/17 19:56 General appearance: Present: no acute distress Results - Labs CBC & Chem 7: 08/30/17 04:11 08/30/17 04:11 Labs: Laboratory Last Values WBC 5.2 K/mm3 (4.5-11.0) 08/30/17 04:11 RBC 4.89 M/mm3 (3.65-5.03) 08/30/17 04:11 Hgb 12.6 gm/dl (11.8-15.2) 08/30/17 04:11 Hct 38.8 % (35.5-45.6) 08/30/17 04:11 MCV 79 fl (84-94) L 08/30/17 04:11 MCH 26 pg (28-32) L 08/30/17 04:11 MCHC 32 % (32-34) 08/30/17 04:11 RDW 13.1 % (13.2-15.2) L 08/30/17 04:11 Plt Count 258 K/mm3 (140-440) 08/30/17 04:11 Lymph % (Auto) 20.8 % (13.4-35.0) 08/30/17 04:11 [place] % (Auto) 8.5 % (0.0-7.3) H 08/30/17 04:11 Eos % (Auto) 7.1 % (0.0-4.3) H 08/30/17 04:11 Baso % (Auto) 1.3 % (0.0-1.8) 08/30/17 04:11 Lymph # 1.1 K/mm3 (1.2-5.4) L 08/30/17 04:11 [place] # 0.4 K/mm3 (0.0-0.8) 08/30/17 04:11 Eos # 0.4 K/mm3 (0.0-0.4) 08/30/17 04:11 Baso # 0.1 K/mm3 (0.0-0.1) 08/30/17 04:11 Seg Neutrophils % 62.3 % (40.0-70.0) 08/30/17 04:11 Seg Neutrophils # 3.2 K/mm3 (1.8-7.7) 08/30/17 04:11 Sodium 141 mmol/L (137-145) 08/30/17 04:11 Potassium 3.4 mmol/L (3.6-5.0) L 08/30/17 04:11 Chloride 100.6 mmol/L (98-107) 08/30/17 04:11 Carbon Dioxide 30 mmol/L (22-30) 08/30/17 04:11 Anion Gap 14 mmol/L 08/30/17 04:11 BUN 9 mg/dL (9-20) 08/30/17 04:11 Creatinine 0.7 mg/dL (0.8-1.5) L 08/30/17 04:11 Estimated GFR > 60 ml/min 08/30/17 04:11 BUN/Creatinine Ratio 13 % 08/30/17 04:11 Glucose 308 mg/dL (75-100) H 08/30/17 04:11 POC Glucose 190 (70-105) H 08/31/17 05:50 Hemoglobin A1c 14.0 % (4-6) H 08/29/17 15:57 Calcium 8.2 mg/dL (8.4-10.2) L 08/30/17 04:11 Total Bilirubin 0.30 mg/dL (0.1-1.2) 08/28/17 14:48 AST 10 units/L (5-40) 08/28/17 14:48 ALT 9 units/L (7-56) 08/28/17 14:48 Alkaline Phosphatase 89 units/L (35-129) 08/28/17 14:48 Total Protein 7.5 g/dL (6.3-8.2) 08/28/17 14:48 Albumin 3.3 g/dL (3.9-5) L 08/28/17 14:48 Albumin/Globulin Ratio 0.8 % 08/28/17 14:48 Lipase 47 units/L (13-60) 08/28/17 14:48 Urine Color Yellow (Yellow) 08/28/17 Unknown Urine Turbidity Clear (Clear) 08/28/17 Unknown Urine pH 6.0 (5.0-7.0) 08/28/17 Unknown Ur Specific [place] 1.032 (1.003-1.030) H 08/28/17 Unknown Urine Protein <15 mg/dl mg/dL (Negative) 08/28/17 Unknown Urine Glucose (UA) >=500 mg/dL (Negative) 08/28/17 Unknown Urine Ketones Neg mg/dL (Negative) 08/28/17 Unknown Urine Blood Sm (Negative) 08/28/17 Unknown Urine Nitrite Neg (Negative) 08/28/17 Unknown Urine Bilirubin Neg (Negative) 08/28/17 Unknown Urine Urobilinogen < 2.0 mg/dL (<2.0) 08/28/17 Unknown Ur Leukocyte Esterase Lg (Negative) 08/28/17 Unknown Urine WBC (Auto) > 182.0 /HPF (0.0-6.0) H 08/28/17 Unknown Urine RBC (Auto) 6.0 /HPF (0.0-6.0) 08/28/17 Unknown U Epithel Cells (Auto) < 1.0 /HPF (0-13.0) 08/28/17 Unknown Urine WBC Clumps 1+ /HPF 08/28/17 Unknown Urine Mucus Few /HPF 08/28/17 Unknown
[2017-08-31] MEDS: LOVENOX SUB-Q SCH (09:24)
--- NOTE | 2017-08-31 17:50 | Progress Note ---
Subjective Date of service: 08/31/17 Interval history: 62-year-old male with a past medical history of BPH, hepatitis C, diabetes, hypertension, prolapsed rectum, and previous cholecystectomy presents to the hospital with complaints of ongoing left flank pain. He has been present for 2 weeks and 3 days. Pain is a constant aching 8/10 pain that becomes a 10/10 pain is sharp with movement. Patient denies dysuria, hematuria, nausea, vomiting, or diarrhea. Patient also states he has no difficulty initiating urination and does not have to strain. Patient has chronic rectal prolapse and hemorrhoids for "years". In 2014 Dr Salgado performed a third of prostate biopsy that shows signs of cancer and radical prostatectomy was recommended. Patient states he was going to get another opinion but has never followed up he also stopped seeing his primary care doctor Yaron Em.. CTAP--left renal mass---6cm, ? abscess guided placement of left renal abscess drainage catheter. Follow culture- growing GNR (08-30-17----Dr. Turner) abd soft A/P left renal mass---6cm, ? abscess Diabetes type 2-Uncontrolled A1C 14 home with 2weeks abx when stable (pt to continue perc tube, repeat CT before removal in 2 wks) Objective - Constitutional Vitals: Vital Signs - 12hr 08/31/17 08/31/17 08/31/17 07:47 10:49 15:28 Temperature 98.5 F 99.0 F Pulse Rate 65 Respiratory 16 14 Rate Blood Pressure 123/78 133/80 O2 Sat by Pulse 98 99 Oximetry - Labs CBC & Chem 7: 08/30/17 04:11 08/30/17 04:11 Labs: Abnormal lab results 08/31/17 08/31/17 08/31/17 Range/Units 00:00 05:50 11:35 POC Glucose 177 H 190 H 243 H (70-105) 08/31/17 Range/Units 15:59 POC Glucose 304 H (70-105)
[2017-08-31] MEDS: MORPHINE IV PRN (18:32)
[2017-09-01] MEDS: NOVOLOG SUB-Q SCH ×5 (00:34→23:22)
[2017-09-01] MEDS: MORPHINE IV PRN ×2 (01:14→12:22)
[2017-09-01] MEDS: ZOSYN/NS 4.5GM/100ML 4.5 GM/100 ML VIAL IV SCH ×3 (05:23→23:23)
[2017-09-01] MEDS: NACL 0.45% 1000 ML 1,000 ML IV SCH ×2 (05:23→20:40)
[2017-09-01 07:01] LABS: Hematocrit 37.1 % (35.5-45.6); Hemoglobin 12.5 gm/dl (11.8-15.2); Mean Corpuscular HGB Conc 34 % (32-34); Mean Corpuscular Hemoglobin 26 pg (28-32); Mean Corpuscular Volume 78 fl (84-94); Platelet Count 226 K/mm3 (140-440); Red Blood Count 4.77 M/mm3 (3.65-5.03); Red Cell Distribution Width 13.2 % (13.2-15.2); White Blood Count 7.5 K/mm3 (4.5-11.0)
--- NOTE | 2017-09-01 07:37 | Progress Note ---
Assessment and Plan Assessment and plan: patient is a 62-year-old male with a past medical history of BPH, hepatitis C, diabetes, hypertension, prolapsed rectum, and previous cholecystectomy presents to the hospital with complaints of ongoing left flank pain. The patient he describes as 10/10 in intensity stuffed him on his tracts. This exacerbated by movement and by touch. He denies any radiation, he reports alleviated by rest. He reports that he was diagnosed with biopsy in 2015 with 3 different biopsies and was referred to have both radical surgery" to which he declined. Says that he has not followed his primary care physician he continues to follow "super food diet". He also he did not fill his primary care physician Woo and off as he was found appointment that was planned for 2:00 and was last seen on till and even I doubt was only seen by a nurse who told him his Dr. one seemed to go reconsider having surgery. Possible renal mass, Sepsis secondary to GNR Acute pyelonephritis Psoas abscess versus necrotic mass Pneumonia, community-acquired Hypertension Hypokalemia Diabetes type 2-Uncontrolled A1C 14 BPH Hepatitis C Plan * Continue IV Abx with zosyn, supportive care, Urology and IR input noted * Await culture and sensitivity, Will need two weeks IV abx. Will place PICC line on Sunday and then discharge, hopefully at that time we will have Sensitivity of bacterium to better direct treatment. Follow with Urology and Repeat CT before removal of Perc drainage in 2 week * Check labs in a.m. * S/P Fluroscopy and ultrasound guided placement of left renal abscess drainage catheter 08/30/17. Follow culture- growing GNR. TAMIA drain in place serosanguineous noted. * Lactate is normal, * Discussed extensively with the patient about Diabetes, He demonstrates understanding, but appears to have limited resources, will ensure reasonably affordable meds on discharge. * Encouraged outpatient PCP eval, including age appropriate screening on discharge * Images studies revealed a 6 cm renal mass which could also be possible abscess. Drainage done yesterday * DVT and GI prophylaxis * Plan of care discussed with the patient in detail * Anticipate discharge in a.m. History Interval history: Patient seen and examined today in no acute distress, continues to improve tolerating diet. Still with flank pain at the site of tube insertion. Hospitalist Physical - Physical exam Narrative exam: VITAL SIGNS: Reviewed. GENERAL: The patient appeared well nourished and normally developed. Vital signs as documented. HEAD: No signs of head trauma. EYES: Pupils are equal. Extraocular motions intact. EARS: Hearing grossly intact. MOUTH: Oropharynx is normal. NECK: No adenopathy, no JVD. CHEST: Chest with clear breath sounds bilaterally. No wheezes, rales, or rhonchi. CARDIAC: Regular rate and rhythm. S1 and S2, without murmurs, gallops, or rubs. VASCULAR: No Edema. Peripheral pulses normal and equal in all extremities. ABDOMEN: Soft, without detectable tenderness. TAMIA drain in place. No sign of distention. No rebound or guarding, and no masses palpated. Bowel Sounds normal. MUSCULOSKELETAL: Good range of motion of all major joints. Extremities without clubbing, cyanosis or edema. NEUROLOGIC EXAM: Alert and oriented x 3. No focal sensory or strength deficits. Speech normal. Follows commands. PSYCHIATRIC: Mood normal. SKIN: TAMIA drain intact. - Constitutional Vitals: Temp Pulse Resp BP Pulse Ox 100.7 F H 76 17 140/81 95 08/31/17 23:20 08/31/17 23:20 09/01/17 01:44 08/31/17 23:20 08/31/17 23:20 General appearance: Present: no acute distress Results - Labs CBC & Chem 7: 09/01/17 06:12 09/01/17 06:12 Labs: Laboratory Last Values WBC 7.5 K/mm3 (4.5-11.0) 09/01/17 06:12 RBC 4.77 M/mm3 (3.65-5.03) 09/01/17 06:12 Hgb 12.5 gm/dl (11.8-15.2) 09/01/17 06:12 Hct 37.1 % (35.5-45.6) 09/01/17 06:12 MCV 78 fl (84-94) L 09/01/17 06:12 MCH 26 pg (28-32) L 09/01/17 06:12 MCHC 34 % (32-34) 09/01/17 06:12 RDW 13.2 % (13.2-15.2) 09/01/17 06:12 Plt Count 226 K/mm3 (140-440) 09/01/17 06:12 Lymph % (Auto) 20.8 % (13.4-35.0) 08/30/17 04:11 [place] % (Auto) 8.5 % (0.0-7.3) H 08/30/17 04:11 Eos % (Auto) 7.1 % (0.0-4.3) H 08/30/17 04:11 Baso % (Auto) 1.3 % (0.0-1.8) 08/30/17 04:11 Lymph # 1.1 K/mm3 (1.2-5.4) L 08/30/17 04:11 [place] # 0.4 K/mm3 (0.0-0.8) 08/30/17 04:11 Eos # 0.4 K/mm3 (0.0-0.4) 08/30/17 04:11 Baso # 0.1 K/mm3 (0.0-0.1) 08/30/17 04:11 Seg Neutrophils % 62.3 % (40.0-70.0) 08/30/17 04:11 Seg Neutrophils # 3.2 K/mm3 (1.8-7.7) 08/30/17 04:11 Sodium 141 mmol/L (137-145) 08/30/17 04:11 Potassium 3.4 mmol/L (3.6-5.0) L 08/30/17 04:11 Chloride 100.6 mmol/L (98-107) 08/30/17 04:11 Carbon Dioxide 30 mmol/L (22-30) 08/30/17 04:11 Anion Gap 14 mmol/L 08/30/17 04:11 BUN 9 mg/dL (9-20) 08/30/17 04:11 Creatinine 0.7 mg/dL (0.8-1.5) L 08/30/17 04:11 Estimated GFR > 60 ml/min 08/30/17 04:11 BUN/Creatinine Ratio 13 % 08/30/17 04:11 Glucose 308 mg/dL (75-100) H 08/30/17 04:11 POC Glucose 143 (70-105) H 09/01/17 06:16 Hemoglobin A1c 14.0 % (4-6) H 08/29/17 15:57 Lactic Acid 1.30 mmol/L (0.7-2.0) 08/31/17 08:39 Calcium 8.2 mg/dL (8.4-10.2) L 08/30/17 04:11 Total Bilirubin 0.30 mg/dL (0.1-1.2) 08/28/17 14:48 AST 10 units/L (5-40) 08/28/17 14:48 ALT 9 units/L (7-56) 08/28/17 14:48 Alkaline Phosphatase 89 units/L (35-129) 08/28/17 14:48 Total Protein 7.5 g/dL (6.3-8.2) 08/28/17 14:48 Albumin 3.3 g/dL (3.9-5) L 08/28/17 14:48 Albumin/Globulin Ratio 0.8 % 08/28/17 14:48 Lipase 47 units/L (13-60) 08/28/17 14:48 Urine Color Yellow (Yellow) 08/28/17 Unknown Urine Turbidity Clear (Clear) 08/28/17 Unknown Urine pH 6.0 (5.0-7.0) 08/28/17 Unknown Ur Specific [place] 1.032 (1.003-1.030) H 08/28/17 Unknown Urine Protein <15 mg/dl mg/dL (Negative) 08/28/17 Unknown Urine Glucose (UA) >=500 mg/dL (Negative) 08/28/17 Unknown Urine Ketones Neg mg/dL (Negative) 08/28/17 Unknown Urine Blood Sm (Negative) 08/28/17 Unknown Urine Nitrite Neg (Negative) 08/28/17 Unknown Urine Bilirubin Neg (Negative) 08/28/17 Unknown Urine Urobilinogen < 2.0 mg/dL (<2.0) 08/28/17 Unknown Ur Leukocyte Esterase Lg (Negative) 08/28/17 Unknown Urine WBC (Auto) > 182.0 /HPF (0.0-6.0) H 08/28/17 Unknown Urine RBC (Auto) 6.0 /HPF (0.0-6.0) 08/28/17 Unknown U Epithel Cells (Auto) < 1.0 /HPF (0-13.0) 08/28/17 Unknown Urine WBC Clumps 1+ /HPF 08/28/17 Unknown Urine Mucus Few /HPF 08/28/17 Unknown
[2017-09-01 08:41] LABS: Anion Gap 15 mmol/L; BUN/Creatinine Ratio 13; Blood Urea Nitrogen 8 mg/dL (9-20); Carbon Dioxide 27 mmol/L (22-30); Chloride 102.6 mmol/L (98-107); Glucose 133 mg/dL (75-100); Potassium 3.1 mmol/L (3.6-5.0); Sodium 141 mmol/L (137-145)
[2017-09-01] MEDS: LOVENOX SUB-Q SCH (09:06)
--- NOTE | 2017-09-01 20:24 | Progress Note ---
Subjective Narrative: I was seeing the Pt daily in the last 3 days , I dont see my notes !! Objective Vital Signs - 12hr 09/01/17 09/01/17 09:57 15:44 Temperature 98.8 F Pulse Rate 74 Respiratory 18 Rate Blood Pressure 140/89 O2 Sat by Pulse 96 95 Oximetry - Labs 09/01/17 06:12 09/01/17 06:12 Diabetes panel 09/01/17 Range/Units 06:12 Sodium 141 (137-145) mmol/L Potassium 3.1 L (3.6-5.0) mmol/L Chloride 102.6 (98-107) mmol/L Carbon Dioxide 27 (22-30) mmol/L BUN 8 L (9-20) mg/dL Creatinine 0.6 L (0.8-1.5) mg/dL Glucose 133 H (75-100) mg/dL Calcium 8.0 L (8.4-10.2) mg/dL Calcium panel 09/01/17 Range/Units 06:12 Calcium 8.0 L (8.4-10.2) mg/dL Pituitary panel 09/01/17 Range/Units 06:12 Sodium 141 (137-145) mmol/L Potassium 3.1 L (3.6-5.0) mmol/L Chloride 102.6 (98-107) mmol/L Carbon Dioxide 27 (22-30) mmol/L BUN 8 L (9-20) mg/dL Creatinine 0.6 L (0.8-1.5) mg/dL Glucose 133 H (75-100) mg/dL Calcium 8.0 L (8.4-10.2) mg/dL Adrenal panel 09/01/17 Range/Units 06:12 Sodium 141 (137-145) mmol/L Potassium 3.1 L (3.6-5.0) mmol/L Chloride 102.6 (98-107) mmol/L Carbon Dioxide 27 (22-30) mmol/L BUN 8 L (9-20) mg/dL Creatinine 0.6 L (0.8-1.5) mg/dL Glucose 133 H (75-100) mg/dL Calcium 8.0 L (8.4-10.2) mg/dL
[2017-09-02] MEDS: ZOSYN/NS 4.5GM/100ML 4.5 GM/100 ML VIAL IV SCH ×3 (06:20→22:40)
--- NOTE | 2017-09-02 08:18 | Progress Note ---
Assessment and Plan Assessment and plan: patient is a 62-year-old male with a past medical history of BPH, hepatitis C, diabetes, hypertension, prolapsed rectum, and previous cholecystectomy presents to the hospital with complaints of ongoing left flank pain. The patient he describes as 10/10 in intensity stuffed him on his tracts. This exacerbated by movement and by touch. He denies any radiation, he reports alleviated by rest. He reports that he was diagnosed with biopsy in 2014 with 3 different biopsies and was referred to have both radical surgery" to which he declined. Says that he has not followed his primary care physician he continues to follow "super food diet". He also he did not fill his primary care physician Woo and off as he was found appointment that was planned for 2:00 and was last seen on till and even I doubt was only seen by a nurse who told him his Dr. one seemed to go reconsider having surgery. Possible renal mass, Sepsis secondary to GNR Acute pyelonephritis Psoas abscess versus necrotic mass Pneumonia, community-acquired Hypertension Hypokalemia Diabetes type 2-Uncontrolled A1C 14 BPH Hepatitis C Plan * Continue IV Abx with zosyn, supportive care, Urology and IR input noted * Await culture and sensitivity, Will need two weeks IV abx. Will place PICC line on Sunday and then discharge, hopefully at that time we will have Sensitivity of bacterium to better direct treatment. Follow with Urology and Repeat CT before removal of Perc drainage in 2 week * Check labs in a.m. * S/P Fluroscopy and ultrasound guided placement of left renal abscess drainage catheter 08/30/17. Follow culture- growing GNR. TAMIA drain in place serosanguineous noted. * Lactate is normal, * Discussed extensively with the patient about Diabetes, He demonstrates understanding, but appears to have limited resources, will ensure reasonably affordable meds on discharge. * Will start On NovoLIN 70/30 units twice a day addition to sliding scale coverage * Encouraged outpatient PCP eval, including age appropriate screening on discharge * Images studies revealed a 6 cm renal mass which could also be possible abscess. Drainage done yesterday * DVT and GI prophylaxis * Plan of care discussed with the patient in detail * Anticipate discharge in a.m. History Interval history: Patient seen and examined today in no acute distress, continues to improve tolerating diet. No new pain. Hospitalist Physical - Physical exam Narrative exam: VITAL SIGNS: Reviewed. GENERAL: The patient appeared well nourished and normally developed. Vital signs as documented. HEAD: No signs of head trauma. EYES: Pupils are equal. Extraocular motions intact. EARS: Hearing grossly intact. MOUTH: Oropharynx is normal. NECK: No adenopathy, no JVD. CHEST: Chest with clear breath sounds bilaterally. No wheezes, rales, or rhonchi. CARDIAC: Regular rate and rhythm. S1 and S2, without murmurs, gallops, or rubs. VASCULAR: No Edema. Peripheral pulses normal and equal in all extremities. ABDOMEN: Soft, without detectable tenderness. TAMIA drain in place. No sign of distention. No rebound or guarding, and no masses palpated. Bowel Sounds normal. MUSCULOSKELETAL: Good range of motion of all major joints. Extremities without clubbing, cyanosis or edema. NEUROLOGIC EXAM: Alert and oriented x 3. No focal sensory or strength deficits. Speech normal. Follows commands. PSYCHIATRIC: Mood normal. SKIN: TAMIA drain intact. - Constitutional Vitals: Temp Pulse Resp BP Pulse Ox 98.7 F 66 18 138/80 97 09/02/17 08:06 09/02/17 08:06 09/02/17 08:06 09/02/17 08:06 09/02/17 08:06 General appearance: Present: no acute distress Results - Labs CBC & Chem 7: 09/01/17 06:12 09/01/17 06:12 Labs: Laboratory Last Values WBC 7.5 K/mm3 (4.5-11.0) 09/01/17 06:12 RBC 4.77 M/mm3 (3.65-5.03) 09/01/17 06:12 Hgb 12.5 gm/dl (11.8-15.2) 09/01/17 06:12 Hct 37.1 % (35.5-45.6) 09/01/17 06:12 MCV 78 fl (84-94) L 09/01/17 06:12 MCH 26 pg (28-32) L 09/01/17 06:12 MCHC 34 % (32-34) 09/01/17 06:12 RDW 13.2 % (13.2-15.2) 09/01/17 06:12 Plt Count 226 K/mm3 (140-440) 09/01/17 06:12 Lymph % (Auto) 20.8 % (13.4-35.0) 08/30/17 04:11 [place] % (Auto) 8.5 % (0.0-7.3) H 08/30/17 04:11 Eos % (Auto) 7.1 % (0.0-4.3) H 08/30/17 04:11 Baso % (Auto) 1.3 % (0.0-1.8) 08/30/17 04:11 Lymph # 1.1 K/mm3 (1.2-5.4) L 08/30/17 04:11 [place] # 0.4 K/mm3 (0.0-0.8) 08/30/17 04:11 Eos # 0.4 K/mm3 (0.0-0.4) 08/30/17 04:11 Baso # 0.1 K/mm3 (0.0-0.1) 08/30/17 04:11 Seg Neutrophils % 62.3 % (40.0-70.0) 08/30/17 04:11 Seg Neutrophils # 3.2 K/mm3 (1.8-7.7) 08/30/17 04:11 Sodium 141 mmol/L (137-145) 09/01/17 06:12 Potassium 3.1 mmol/L (3.6-5.0) L 09/01/17 06:12 Chloride 102.6 mmol/L (98-107) 09/01/17 06:12 Carbon Dioxide 27 mmol/L (22-30) 09/01/17 06:12 Anion Gap 15 mmol/L 09/01/17 06:12 BUN 8 mg/dL (9-20) L 09/01/17 06:12 Creatinine 0.6 mg/dL (0.8-1.5) L 09/01/17 06:12 Estimated GFR > 60 ml/min 09/01/17 06:12 BUN/Creatinine Ratio 13 % 09/01/17 06:12 Glucose 133 mg/dL (75-100) H 09/01/17 06:12 POC Glucose 164 (70-105) H 09/02/17 06:40 Hemoglobin A1c 14.0 % (4-6) H 08/29/17 15:57 Lactic Acid 1.30 mmol/L (0.7-2.0) 08/31/17 08:39 Calcium 8.0 mg/dL (8.4-10.2) L 09/01/17 06:12 Total Bilirubin 0.30 mg/dL (0.1-1.2) 08/28/17 14:48 AST 10 units/L (5-40) 08/28/17 14:48 ALT 9 units/L (7-56) 08/28/17 14:48 Alkaline Phosphatase 89 units/L (35-129) 08/28/17 14:48 Total Protein 7.5 g/dL (6.3-8.2) 08/28/17 14:48 Albumin 3.3 g/dL (3.9-5) L 08/28/17 14:48 Albumin/Globulin Ratio 0.8 % 08/28/17 14:48 Lipase 47 units/L (13-60) 08/28/17 14:48 Urine Color Yellow (Yellow) 08/28/17 Unknown Urine Turbidity Clear (Clear) 08/28/17 Unknown Urine pH 6.0 (5.0-7.0) 08/28/17 Unknown Ur Specific [place] 1.032 (1.003-1.030) H 08/28/17 Unknown Urine Protein <15 mg/dl mg/dL (Negative) 08/28/17 Unknown Urine Glucose (UA) >=500 mg/dL (Negative) 08/28/17 Unknown Urine Ketones Neg mg/dL (Negative) 08/28/17 Unknown Urine Blood Sm (Negative) 08/28/17 Unknown Urine Nitrite Neg (Negative) 08/28/17 Unknown Urine Bilirubin Neg (Negative) 08/28/17 Unknown Urine Urobilinogen < 2.0 mg/dL (<2.0) 08/28/17 Unknown Ur Leukocyte Esterase Lg (Negative) 08/28/17 Unknown Urine WBC (Auto) > 182.0 /HPF (0.0-6.0) H 08/28/17 Unknown Urine RBC (Auto) 6.0 /HPF (0.0-6.0) 08/28/17 Unknown U Epithel Cells (Auto) < 1.0 /HPF (0-13.0) 08/28/17 Unknown Urine WBC Clumps 1+ /HPF 08/28/17 Unknown Urine Mucus Few /HPF 08/28/17 Unknown
[2017-09-02] MEDS: NOVOLOG SUB-Q SCH ×4 (09:07→22:40)
[2017-09-02] MEDS: LOVENOX SUB-Q SCH (09:08)
[2017-09-02] MEDS: NACL 0.45% 1000 ML 1,000 ML IV SCH (14:16)
[2017-09-03] MEDS: NACL 0.45% 1000 ML 1,000 ML IV SCH (04:24)
[2017-09-03 04:41] LABS: Hemoglobin 11.9 gm/dl (11.8-15.2); Mean Corpuscular HGB Conc 33 % (32-34); Mean Corpuscular Volume 78 fl (84-94); Platelet Count 217 K/mm3 (140-440); Red Blood Count 4.62 M/mm3 (3.65-5.03); Red Cell Distribution Width 13.2 % (13.2-15.2); White Blood Count 5.7 K/mm3 (4.5-11.0)
[2017-09-03 04:44] LABS: Mean Corpuscular Hemoglobin 26 pg (28-32)
[2017-09-03 04:56] LABS: Anion Gap 14 mmol/L; BUN/Creatinine Ratio 13; Blood Urea Nitrogen 8 mg/dL (9-20); Carbon Dioxide 28 mmol/L (22-30); Chloride 101.7 mmol/L (98-107); Glucose 94 mg/dL (75-100); Sodium 141 mmol/L (137-145)
[2017-09-03] MEDS: ZOSYN/NS 4.5GM/100ML 4.5 GM/100 ML VIAL IV SCH (06:50)
[2017-09-03] MEDS: NOVOLOG SUB-Q SCH ×2 (07:30→12:26)
[2017-09-03 08:32] VITALS: BP 153/91
[2017-09-03] MEDS: LOVENOX SUB-Q SCH (09:23)
[2017-09-03] MEDS ORDERED: K-DUR PO ONE ×2 (09:29→13:00)
--- NOTE | 2017-09-03 09:32 | Discharge Summary ---
Providers - Providers Date of Admission: 08/29/17 04:42 Attending physician: LEDA PELAYO MD 08/30/17 10:08 Consult to Physician [CONS] Routine Consulting Provider: FRIDA RENEE Reason For Exam: left renal abscess, hx of prostate ca Place consult to:: DR. RENEE Notified:: MD TO CONSULT Comment:: MD TO CONSULT Primary care physician: [facility] Hospitalization Reason for admission: renal abscess Condition: Stable Hospital course: patient is a 62-year-old male with a past medical history of BPH, hepatitis C, diabetes, hypertension, prolapsed rectum, and previous cholecystectomy presents to the hospital with complaints of ongoing left flank pain. The patient he describes as 10/10 in intensity stuffed him on his tracts. This exacerbated by movement and by touch. He denies any radiation, he reports alleviated by rest. He reports that he was diagnosed with biopsy in 2014 with 3 different biopsies and was referred to have both radical surgery" to which he declined. Says that he has not followed his primary care physician he continues to follow "super food diet". He also he did not fill his primary care physician Woo and off as he was found appointment that was planned for 2:00 and was last seen on till 6 and even I doubt was only seen by a nurse who told him his DrMilton one seemed to go reconsider having surgery. Patient on admission was noted to have a renal abscess versus psoas muscle abscess surgeon was consulted and recommended admission for urology recommended interventional radiologist. The patient proceeded and had a successful placement of percutaneous drainage with good results. Patient's pain resolved. No for the field was noted here in the hospital. Antibiotics were started patient did grow Klebsiella oxytoca which the gram-negative rods. The patient was started on ciprofloxacin based on sensitivity I recommended to follow with urology outpatient. Patient was also noted to have a hemoglobin A1c of 14 was advised about this and the findings the patient stated that test must be wrong as he has been using naturopathic methods to control his blood sugar. He does not follow his blood sugar patient. Risk of CONTROLLED DIABETES MELLITUS WAS DISCUSSED IN DETAIL WITH THE PATIENT'S ALSO HE STATED THAT HE HAS A HISTORY OF PROSTATE CANCER HAS CURED HIMSELF USING NATUROPATHIC METHODS. I RECOMMENDED A CLOSE FOLLOW-UP WITH UROLOGY FOR BETTER IMPROVEMENT. Possible renal mass, Sepsis secondary to klebsilla Oxytoca- GNR Acute pyelonephritis Prostate cancer per history Pneumonia, community-acquired Hypertension Hypokalemia Diabetes type 2-Uncontrolled A1C 14 BPH Hepatitis C Disposition: DC-01 TO HOME OR SELFCARE Time spent for discharge: 35 mins Core Measure Documentation - Palliative Care Palliative Care/ Comfort Measures: Not Applicable - Core Measures Any of the following diagnoses?: none - VTE Discharge Requirements Deep Vein Thrombosis/Pulmonary Embolism Present on Admission: No Exam - Physical Exam Narrative exam: VITAL SIGNS: Reviewed. GENERAL: The patient appeared well nourished and normally developed. Vital signs as documented. HEAD: No signs of head trauma. EYES: Pupils are equal. Extraocular motions intact. EARS: Hearing grossly intact. MOUTH: Oropharynx is normal. NECK: No adenopathy, no JVD. CHEST: Chest with clear breath sounds bilaterally. No wheezes, rales, or rhonchi. CARDIAC: Regular rate and rhythm. S1 and S2, without murmurs, gallops, or rubs. VASCULAR: No Edema. Peripheral pulses normal and equal in all extremities. ABDOMEN: Soft, without detectable tenderness. TAMIA drain in place. No sign of distention. No rebound or guarding, and no masses palpated. Bowel Sounds normal. MUSCULOSKELETAL: Good range of motion of all major joints. Extremities without clubbing, cyanosis or edema. NEUROLOGIC EXAM: Alert and oriented x 3. No focal sensory or strength deficits. Speech normal. Follows commands. PSYCHIATRIC: Mood normal. SKIN: TAMIA drain intact. - Constitutional Vitals: Temp Pulse Resp BP Pulse Ox 98.7 F 68 20 153/91 99 09/03/17 07:57 09/03/17 07:57 09/03/17 07:57 09/03/17 07:57 09/03/17 07:57 Plan Activity: advance as tolerated, fall precautions Diet: diabetic Wound: drain care as instructed Special Instructions: record daily BP diary, record blood sugar diary Additional Instructions: must keep a diabetic diarreha to discuss with PCP Follow up with: JORJE DANGELO MD [Primary Care Provider] - 7 Days CAM BARNETT MD [Staff Physician] - 7 Days [facility] [Outside] - 7 Days Prescriptions: Bacillus Coagulans [Probiotic] 1 each PO DAILY #14 capsule. Ciprofloxacin HCl [Ciprofloxacin TAB] 500 mg PO Q12H 10 Days Insulin NPH/Regular [NovoLIN 70/30] 14 unit SUB-Q BIDDIAB 30 Days Other Discharge Orders: Glucometer (Amb) Location: Determined By Patient Glucometer supplies[Amb] Location: Determined By Patient
--- NOTE | 2017-09-03 12:26 | XRay Report ---
AP CHEST: HISTORY: Left arm PICC placement The left arm PICC terminates near the cavoatrial junction. There is patchy infiltrate in the left lower lobe and small left pleural effusion. The right lung is clear. Normal heart and mediastinal structures. IMPRESSION: Adequate placement of the left arm PICC. Possible left lower lobe infiltrate and small left pleural effusion.
[2017-09-03] MEDS ORDERED: TRIPLE ANTIBIOTIC TP ONE (13:00)
== END 2017-09-03 14:45 | disposition home or self-care (01) | DRG 871 ==
LOC: ED 14:15 → 3A 08-29 04:42
PROVIDERS: ADMIT Internal Medicine; ATTEND Internal Medicine
PROC: 0T9130Z Drainage of Left Kidney with Drainage Device, Percutaneous Approach (ICD-10-PCS; principal; 2017-08-30)
PROC: BT121ZZ Fluoroscopy of Left Kidney using Low Osmolar Contrast (ICD-10-PCS; 2017-08-30)
PROC: 02HV33Z Insertion of Infusion Device into Superior Vena Cava, Percutaneous Approach (ICD-10-PCS; 2017-09-03)
DX: A41.59 Other Gram-negative sepsis (principal); J18.9 Pneumonia, unspecified organism; K68.12 Psoas muscle abscess; N10 Acute pyelonephritis; N28.89 Other specified disorders of kidney and ureter; N40.0 Benign prostatic hyperplasia without lower urinary tract symptoms; B19.20 Unspecified viral hepatitis C without hepatic coma; E11.9 Type 2 diabetes mellitus without complications; N28.1 Cyst of kidney, acquired; I11.0 Hypertensive heart disease with heart failure; I50.9 Heart failure, unspecified; E78.5 Hyperlipidemia, unspecified; I25.10 Atherosclerotic heart disease of native coronary artery without angina pectoris; Z83.3 Family history of diabetes mellitus; Z90.49 Acquired absence of other specified parts of digestive tract; Z85.46 Personal history of malignant neoplasm of prostate; Z90.79 Acquired absence of other genital organ(s)
CPT/HCPCS: 36415; 49405; 71010; 74177; 76770; 76998; 80048; 80053; 81001; 82140; 82962; 83036; 83690; 85025; 85027; 87040; 87076; 87086; 87116; 87186; 96365; 96375; A6250; C1729; C1751; C1769; J0690; J0696; J1650; J1815; J1885; J2270; J2543; J7030; Q9967

== ENCOUNTER 2017-09-04 18:11 | Emergency (ER) | payer MEDICARE ==
[2017-09-04 19:08] LABS: Basophils % (Auto) 0.9 % (0.0-1.8); Eosinophils % (Auto) 6.5 % (0.0-4.3); Hematocrit 38.3 % (35.5-45.6); Hemoglobin 12.5 gm/dl (11.8-15.2); Mean Corpuscular HGB Conc 33 % (32-34); Mean Corpuscular Volume 79 fl (84-94); Platelet Count 258 K/mm3 (140-440); Red Blood Count 4.87 M/mm3 (3.65-5.03); Red Cell Distribution Width 13.3 % (13.2-15.2); White Blood Count 4.7 K/mm3 (4.5-11.0)
[2017-09-04 19:09] LABS: Mean Corpuscular Hemoglobin 26 pg (28-32)
[2017-09-04 19:27] LABS: Anion Gap 16 mmol/L; BUN/Creatinine Ratio 12; Blood Urea Nitrogen 7 mg/dL (9-20); Calcium 9.1 mg/dL (8.4-10.2); Carbon Dioxide 30 mmol/L (22-30); Chloride 94.3 mmol/L (98-107); Glucose 322 mg/dL (75-100); Potassium 4.2 mmol/L (3.6-5.0); Sodium 136 mmol/L (137-145)
--- NOTE | 2017-09-05 07:22 | Emergency Department Report ---
ED Extremity Problem HPI - General Chief complaint: Extremity Problem,Nontraumatic Stated complaint: BODY SWOLLEN Time Seen by Provider: 09/05/17 06:32 Source: patient Mode of arrival: Ambulatory Limitations: No Limitations - History of Present Illness Initial comments: Patient is a 62-year-old male past medical history of psoas abscess status post wound VAC who presents with bilateral leg swelling and leg pain. Patient states that he's had swelling for the last couple weeks and his legs. He notices the swelling mostly on his ankles. He states that walking makes his pain worse. He states his pain is a 3 out of 10 to an achy type of pain it doesn't radiate. Patient denies having any shortness of breath or any chest pain. Severity scale (0 -10): 8 - Related Data Previous Rx's Medication Instructions Recorded Last Taken Type Bacillus Coagulans [Probiotic] 1 each PO DAILY #14 capsule. 09/03/17 Unknown Rx Ciprofloxacin HCl [Ciprofloxacin 500 mg PO Q12H 10 Days 09/03/17 Unknown Rx TAB] Insulin NPH/Regular [NovoLIN 70/30] 14 unit SUB-Q BIDDIAB 30 Days 09/03/17 Unknown Rx Furosemide [Lasix] 20 mg PO DAILY #20 tablet 09/05/17 Unknown Rx Allergies Allergy/AdvReac Type Severity Reaction Status Date / Time No Known Allergies Allergy Verified 08/29/17 01:06 ED Review of Systems ROS: Stated complaint: BODY SWOLLEN Other details as noted in HPI Constitutional: denies: chills, fever Eyes: denies: eye pain, eye discharge, vision change ENT: denies: ear pain, throat pain Respiratory: denies: cough, shortness of breath, wheezing Cardiovascular: edema. denies: chest pain, palpitations Endocrine: no symptoms reported Gastrointestinal: denies: abdominal pain, nausea, diarrhea Genitourinary: denies: urgency, dysuria Musculoskeletal: denies: back pain, joint swelling, arthralgia Skin: denies: rash, lesions Neurological: denies: headache, weakness, paresthesias Psychiatric: denies: anxiety, depression Hematological/Lymphatic: denies: easy bleeding, easy bruising ED Past Medical Hx - Past Medical History Previous Medical History?: Yes Hx Hypertension: Yes Hx Diabetes: Yes Hx Deep Vein Thrombosis: No Hx Liver Disease: Yes Additional medical history: BPH, biopsy of prostate, prolapse rectum, hepatitis C - Surgical History Past Surgical History?: Yes Hx Pacemaker: No Hx Internal Defibrillator: No Hx Cholecystectomy: Yes Additional Surgical History: Rectal reconstruction - Social History Smoking Status: Never Smoker Substance Use Type: Alcohol - Medications Home Medications: Home Medications Medication Instructions Recorded Confirmed Last Taken Type Bacillus Coagulans [Probiotic] 1 each PO DAILY #14 capsule. 09/03/17 Unknown Rx Ciprofloxacin HCl [Ciprofloxacin 500 mg PO Q12H 10 Days 09/03/17 Unknown Rx TAB] Insulin NPH/Regular [NovoLIN 70/30] 14 unit SUB-Q BIDDIAB 30 Days 09/03/17 Unknown Rx Furosemide [Lasix] 20 mg PO DAILY #20 tablet 09/05/17 Unknown Rx ED Physical Exam - General Limitations: No Limitations General appearance: alert, in no apparent distress - Head Head exam: Present: atraumatic, normocephalic - Eye Eye exam: Present: normal appearance - ENT ENT exam: Present: mucous membranes moist - Neck Neck exam: Present: normal inspection - Respiratory Respiratory exam: Present: normal lung sounds bilaterally. Absent: respiratory distress - Cardiovascular Cardiovascular Exam: Present: regular rate, normal rhythm. Absent: systolic murmur, diastolic murmur, rubs, gallop - GI/Abdominal GI/Abdominal exam: Present: soft, normal bowel sounds - Rectal Rectal exam: Present: deferred - Extremities Exam Extremities exam: Present: pedal edema (+1) - Back Exam Back exam: Present: other (left flank wound vac ) - Neurological Exam Neurological exam: Present: alert, oriented X3 - Psychiatric Psychiatric exam: Present: normal affect, normal mood - Skin Skin exam: Present: warm, dry, intact, normal color. Absent: rash ED Course Vital Signs 09/04/17 09/05/17 09/05/17 18:25 06:52 07:35 Temperature 98 F 97.5 F L 97.9 F Pulse Rate 82 50 L 68 Respiratory 20 18 17 Rate Blood Pressure 165/88 Blood Pressure 174/90 150/81 [Left] O2 Sat by Pulse 97 100 100 Oximetry ED Medical Decision Making - Lab Data Result diagrams: 09/04/17 18:41 09/04/17 18:44 Lab Results 09/04/17 09/04/17 09/05/17 Range/Units 18:41 18:44 07:13 WBC 4.7 (4.5-11.0) K/mm3 RBC 4.87 (3.65-5.03) M/mm3 Hgb 12.5 (11.8-15.2) gm/dl Hct 38.3 (35.5-45.6) % MCV 79 L (84-94) fl MCH 26 L (28-32) pg MCHC 33 (32-34) % RDW 13.3 (13.2-15.2) % Plt Count 258 (140-440) K/mm3 Lymph % (Auto) 18.5 (13.4-35.0) % Edwards % (Auto) 8.5 H (0.0-7.3) % Eos % (Auto) 6.5 H (0.0-4.3) % Baso % (Auto) 0.9 (0.0-1.8) % Lymph # 0.9 L (1.2-5.4) K/mm3 Edwards # 0.4 (0.0-0.8) K/mm3 Eos # 0.3 (0.0-0.4) K/mm3 Baso # 0.0 (0.0-0.1) K/mm3 Seg Neutrophils % 65.6 (40.0-70.0) % Seg Neutrophils # 3.1 (1.8-7.7) K/mm3 Sodium 136 L (137-145) mmol/L Potassium 4.2 D (3.6-5.0) mmol/L Chloride 94.3 L (98-107) mmol/L Carbon Dioxide 30 (22-30) mmol/L Anion Gap 16 mmol/L BUN 7 L (9-20) mg/dL Creatinine 0.6 L (0.8-1.5) mg/dL Estimated GFR > 60 ml/min BUN/Creatinine Ratio 12 % Glucose 322 H (75-100) mg/dL Calcium 9.1 (8.4-10.2) mg/dL Troponin T (0.00-0.029) ng/mL NT-Pro-B Natriuret Pep 259.9 (0-900) pg/mL 09/05/17 Range/Units 07:13 WBC (4.5-11.0) K/mm3 RBC (3.65-5.03) M/mm3 Hgb (11.8-15.2) gm/dl Hct (35.5-45.6) % MCV (84-94) fl MCH (28-32) pg MCHC (32-34) % RDW (13.2-15.2) % Plt Count (140-440) K/mm3 Lymph % (Auto) (13.4-35.0) % Edwards % (Auto) (0.0-7.3) % Eos % (Auto) (0.0-4.3) % Baso % (Auto) (0.0-1.8) % Lymph # (1.2-5.4) K/mm3 Edwards # (0.0-0.8) K/mm3 Eos # (0.0-0.4) K/mm3 Baso # (0.0-0.1) K/mm3 Seg Neutrophils % (40.0-70.0) % Seg Neutrophils # (1.8-7.7) K/mm3 Sodium (137-145) mmol/L Potassium (3.6-5.0) mmol/L Chloride (98-107) mmol/L Carbon Dioxide (22-30) mmol/L Anion Gap mmol/L BUN (9-20) mg/dL Creatinine (0.8-1.5) mg/dL Estimated GFR ml/min BUN/Creatinine Ratio % Glucose (75-100) mg/dL Calcium (8.4-10.2) mg/dL Troponin T < 0.010 (0.00-0.029) ng/mL NT-Pro-B Natriuret Pep (0-900) pg/mL - Radiology Data Radiology results: report reviewed, image reviewed Chest x-ray: Shows no acute cardiopulmonary disease Bilateral duplex ultrasound: Shows no evidence of DVT - Medical Decision Making Cdx: peripheral edema ddx: CHF, DVT I will get duplex ultrasound, CBC, CMP, chest x-ray, oral Lasix Patient's imaging and laboratory studies are unremarkable. Patient's leg pain is better I will send patient home with a short trial of oral Lasix. He will also need to follow up with his primary care provider. Discussed with patient, he agrees with plan additional verbal discharge instructions were given. Critical care attestation.: If time is entered above; I have spent that time in minutes in the direct care of this critically ill patient, excluding procedure time. 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
--- NOTE | 2017-09-05 07:53 | XRay Report ---
ROUTINE CHEST, TWO VIEWS: HISTORY: Shortness of breath. Compared to 09/03/17. The left arm PICC has been removed. Small left pleural effusion is essentially unchanged. There is better aeration of the left lower lobe on today's exam consistent with decreased infiltrate or atelectasis. The remainder of the lungs are clear. Heart and mediastinal structures are within normal limits. Normal bony thorax. IMPRESSION: Decreased left lower lobe opacity since 09/03/17. Persistent small left pleural effusion. No new acute process.
[2017-09-05] MEDS ORDERED: LASIX PO ONE (07:59)
[2017-09-05 10:28] VITALS: BP 148/80
--- NOTE | 2017-09-07 07:05 | Vascular Lab Report ---
LOWER EXTREMITY VENOUS DUPLEX: REASON FOR EXAM: Swelling of the lower extremities. COMMENTS ON THE RIGHT: All veins visualized are freely compressible without evidence of internal echogenicity. Flow is spontaneous and phasic throughout. COMMENTS ON THE LEFT: All veins visualized are freely compressible without evidence of internal echogenicity. Flow is spontaneous and phasic throughout. IMPRESSION: No evidence of acute or chronic deep venous thrombosis in either lower extremity.
== END 2017-09-05 10:28 | disposition home or self-care (01) ==
LOC: ED 18:11
DX: M79.605 Pain in left leg (principal); M79.604 Pain in right leg; I10 Essential (primary) hypertension; E11.21 Type 2 diabetes mellitus with diabetic nephropathy; Z79.4 Long term (current) use of insulin
CPT/HCPCS: 36415; 71020; 80048; 83880; 84484; 85025; 93970

== ENCOUNTER 2019-08-08 19:48 | Emergency (ER) | payer MEDICARE ==
--- NOTE | 2019-08-08 20:05 | Event Note ---
ED Screening Note Date of service: 08/08/19 Time: 20:02 ED Screening Note: This is a 64 y.o. M. that presents to the ER with painful vesicular rash from left flank to LLQ for 3 days. This initial assessment/diagnostic orders/clinical plan/treatment(s) is/are subject to change based on patients health status, clinical progression and re- assessment by fellow clinical providers in the ED. Further treatment and workup at subsequent clinical providers discretion. Patient/guardian urged not to elope from the ED as their condition may be serious if not clinically assessed and managed. Initial orders include: ACC for further evaluation
--- NOTE | 2019-08-08 22:30 | Emergency Department Report ---
ED Rash HPI - HPI Chief Complaint: Abdominal Pain Stated Complaint: PAIN ON LEFT SIDE Time Seen by Provider: 08/08/19 20:01 Duration: 3 Days Rash Symptoms: Yes Blistering, No Fever Severity: severe Other History: 64-year-old male presents to the emergency room for left flank pain for lesions for 3 days. Patient denies any nausea vomiting no difficulty urinating. ED Review of Systems ROS: Stated complaint: PAIN ON LEFT SIDE Other details as noted in HPI Comment: All other systems reviewed and negative Skin: rash, lesions ED Past Medical Hx - Past Medical History Previous Medical History?: Yes Hx Hypertension: Yes Hx Congestive Heart Failure: No Hx Diabetes: Yes Hx Deep Vein Thrombosis: No Hx Liver Disease: Yes Hx Asthma: No Hx COPD: No Additional medical history: BPH, biopsy of prostate, prolapse rectum, hepatitis C - Surgical History Past Surgical History?: Yes Hx Pacemaker: No Hx Internal Defibrillator: No Hx Cholecystectomy: Yes Additional Surgical History: Rectal reconstruction - Social History Smoking Status: Never Smoker Substance Use Type: None - Medications Home Medications: Home Medications Medication Instructions Recorded Confirmed Last Taken Type Hypromellose [Isopto Tears 0.5%] 2 drops OU Q4H PRN #2 bottle 06/17/18 Unknown Rx Min Oil/Petrolatum [Artificial 1 applic OU QHS #2 tube 06/17/18 Unknown Rx Tears Ophth Oint] predniSONE [Deltasone] 60 mg PO QDAY #18 tablet 06/17/18 Unknown Rx Acyclovir [Zovirax Tab] 800 mg PO TID #30 tablet 08/08/19 Unknown Rx oxyCODONE /ACETAMINOPHEN [Percocet 1 tab PO Q6HR PRN #15 tablet 08/08/19 Unknown Rx 5/325] Rash Exam - Exam General: Vital signs noted. No distress. Alert and acting appropriately. HEENT: No Periorbital Edema, No Conjuctival Injection, No Chemosis, No Perioral Edema, No Tongue Edema, No Uvular Edema, No Compromised Airway, No Drooling Lungs: Yes Good Air Exchange (Normal Breath Sounds), No Wheezes, No Ronchi, No Stridor, No Cough, No Labored Respirations, No Retractions, No Use of Accessory Muscles, No Other Abnormal Lung Sounds Heart: Yes Regular, No Murmur Skin: Yes Tenderness, Yes Other (grouped vesicular lesions left flank and wraps around to the left abdomen does not cross midline.) Other: Positive: Abdomen Normal, Neurologic Normal, Musculoskeletal Normal ED Course Vital Signs 08/08/19 08/08/19 19:54 20:01 Temperature 98.5 F 98.5 F Pulse Rate 84 84 Respiratory 18 18 Rate Blood Pressure 164/90 164/90 O2 Sat by Pulse 97 99 Oximetry ED Medical Decision Making - Medical Decision Making 64-year-old male presents to the emergency room for left flank pain for lesions for 3 days. Patient denies any nausea vomiting no difficulty urinating. Patient appears to have a shingle outbreak. Patient is placed on acyclovir 800 mg by mouth 3 times a day for 10 days as well as Percocet for pain management. Patient to follow up with her primary care provider Critical care attestation.: If time is entered above; I have spent that time in minutes in the direct care of this critically ill patient, excluding procedure time. ED Disposition Clinical Impression: Shingles rash Qualifiers: Herpes zoster complications: unspecified herpes zoster complication Qualified Code(s): B02.8 - Zoster with other complications Disposition: DC-01 TO HOME OR SELFCARE Is pt being admited?: No Does the pt Need Aspirin: No Condition: Stable Instructions: Herpes Zoster (ED) Additional Instructions: Take medications as prescribed. Pain medication as needed. Do not operate heavy machinery while taking Percocet. Follow-up which her primary care provider in the next 3-5 days. Prescriptions: oxyCODONE /ACETAMINOPHEN [Percocet 5/325] 1 tab PO Q6HR PRN #15 tablet PRN Reason: Pain Acyclovir [Zovirax Tab] 800 mg PO TID #30 tablet Referrals: DASH MILLS MD [Primary Care Provider] - 3-5 Days
[2019-08-08 23:10] VITALS: BP 159/86
== END 2019-08-08 22:55 | disposition home or self-care (01) ==
LOC: ED 19:48
DX: B02.8 Zoster with other complications (principal); I10 Essential (primary) hypertension; E11.9 Type 2 diabetes mellitus without complications; Z79.899 Other long term (current) drug therapy